=== PATIENT | female | born 1935 | race Caucasian/White ===

== ENCOUNTER 2016-12-27 13:54 | Inpatient (IN) | payer MEDICARE, OTHER ==
[~2016-12-27] VITALS: Ht 165.1 cm; Wt 59.0 kg
[2016-12-27 02:00] VITALS: BP 153/70; RESP 18
[2016-12-27 14:00] VITALS: Ht 165.1 cm; Wt 59.0 kg
[2016-12-27] MEDS ORDERED: ACETAMINOPHEN 325 MG TAB PO PRN (15:30)
[2016-12-27] MEDS: DEXTROSE 5%-0.9% NACL 1,000 ML IV SCH (16:09)
--- NOTE | 2016-12-27 16:12 | CONS ---
DATE OF ADMISSION: 12/27/2016 DATE OF CONSULTATION: 12/27/2016 HISTORY OF PRESENT ILLNESS: The patient is a 81-year-old female who developed pain and limit of mot ion involving her right hip following a ground level fall about 2 days ago. Initially, she was able to ambulate herself with some pain; however, evaluation on the day of her admission at the primary care physician's office revealed an obvious presence of femoral neck fracture involving the right hi p and she was admitted. There was tenderness. She has been in relatively good health with the only significant history of hyperlipidemia. She had hypertension at one time, but her blood pressure is under good control. PHYSICAL EXAMINATION: My examination revealed a 81-year-old female who seems to be rather healthy. There was tenderness and swelling around the right hip. Range of motion of the right hip was provo han considerable pain. There was minimal shortening and no abnormal rotation of the right lower ex tremity. There were no signs of neurovascular compromise involving the right lower extremity. DIAGNOSTIC STUDIES: X-rays of the right hip revealed an obvious fracture involving the subcapital a jaclyn of the femoral neck of the right hip. DIAGNOSTIC IMPRESSION: Femoral neck fracture of the right hip. TREATMENT PLAN: To carry out the hemiarthroplasty of the right hip as soon as she can be medically cleared for surgery. Dictated By: JOSÉ MIGUEL DELACRUZ/DENNIS Conf#: [id number] DID#: [id number]
--- NOTE | 2016-12-27 16:30 | HP ---
Date/Time of Note Date/Time of Note DATE: 12/27/16 TIME: 16:22 Assessment/Plan VTE Prophylaxis VTE Prophylaxis Intervention: SCD's Lines/Catheters IV Catheter Type (from Nrs): Saline Lock Urinary Cath still in place: No Assessment/Plan Chief Complaint/Hosp Course 1. Right hip fracture . Pt is scheduled for surgery by dr Rosen 2. dyslipidemia Problems: Assessment/Plan 1. Pt is clear for right hemiarthroplasty 2. NPO after midnight 3. Pain control HPI/ROS Admit Date/Time Admit Date/Time Dec 27, 2016 at 13:54 Hx of Present Illness January 24 patient felt on the floor at her home, consecutively she could not walk. On 12/27/2016 she was seen in ER and found right hip fracture ROS Constitutional: no complaints Eyes: no complaints ENT: no complaints Respiratory: no complaints Cardiovascular: chest pain, no complaints, No edema, No lightheadedness, No orthopenea, No other, No palpitations, No paroxysmal nocturnal dyspnea Gastrointestinal: no complaints Genitourinary: dysuria, no complaints, No bleeding, No discharge, No flank pain, No hematuria, No other Musculoskeletal: back pain, bone/joint pain (left hip), neck pain, no complaints, other, restricted range of motion, swelling Skin: no complaints Neurologic: no complaints Endocrine: no complaints Lymphatic: no complaints Psychological: anxiety, No confusion, No depression, No nl mood/affect, No no complaints, No other, No suicidal Immunologic: immunodeficiency, no complaints, No other, No pruritis, No rhinitis, No urticaria PMH/Family/Social Past Medical History Medical History: high cholesterol Past Surgical History Past Surgical Hx: no surgical history Family History Significant Family History: no pertinent family hx Social History Alcohol Use: none Smoking Status: Never smoker Drug Use: none Exam/Review of Systems Vital Signs Vitals Vital Signs Date Time Temp Pulse Resp B/P Pulse Ox O2 Delivery O2 Flow Rate FiO2 12/27/16 02:00 98.4 66 18 153/70 96 Exam Constitutional: alert, oriented Psych: nl mood/affect, no complaints Head: normocephalic Eyes: nl conjunctiva ENMT: nl external ears & nose Neck: supple Respiratory: clear to auscultation Cardiovascular: regular rate and rhythm Gastrointestinal: soft Genitourinary - Female: nl adnexae Musculoskeletal: other (pain in left hip) Extremities: normal pulses Neurological: URB[employer] FORESTER II-XII intact Medications Medications Current Medications Acetaminophen (Tylenol Tab) 650 mg Q6H PRN PO PAIN AND OR ELEVATED TEMP; Start 12/27/16 at 15:30 Bisacodyl 10 mg 10 mg BID PRN PO CONSTIPATION; Start 12/27/16 at 15:30 Dextrose/Sodium Chloride (D5-NS) 1,000 ml @ 50 mls/hr Q20H IV Last administered on 12/27/16 16:09; Admin Dose 50 MLS/HR; Start 12/27/16 at 15:30 WANDER CARPENTER Dec 27, 2016 16:30
[2016-12-27] MEDS ORDERED: DEXTROSE 5%-0.45% NACL 1,000 ML IV SCH (16:32)
[2016-12-27 16:43] LABS: ADD SCAN DIFF NO
[2016-12-27 16:45] LABS: BASOPHILS % 0.5 % (0.0-2.0); EOSINOPHILS # 0.1 10^3/ul (0.0-0.5); EOSINOPHILS % 1.3 % (0.0-7.0); HEMATOCRIT 37.1 % (37.0-47.0); HEMOGLOBIN 12.2 g/dl (12.0-16.0); LYMPHOCYTES # 1.1 10^3/ul (0.8-2.9); LYMPHOCYTES % 18.6 % (15.0-51.0); MEAN CORPUSCULAR HEMOGLOBIN 31.8 pg (29.0-33.0); MEAN CORPUSCULAR HGB CONC 32.9 g/dl (32.0-37.0); MEAN CORPUSCULAR VOLUME 96.6 fl (82.0-101.0); MONOCYTE # 0.5 10^3/ul (0.3-0.9); MONOCYTES % 8.7 % (0.0-11.0); NEUTROPHIL # 4.2 10^3/ul (1.6-7.5); NEUTROPHILS % 70.7 % (39.0-77.0); PLATELET COUNT 184 10^3/UL (140-415); RED BLOOD COUNT 3.84 10^6/ul (4.20-5.40); RED CELL DISTRIBUTION WIDTH 13.6 % (11.5-14.5)
[2016-12-27] MEDS ORDERED: NACL 0.9% 3 ML SYG IV SCH (17:00)
[2016-12-27] MEDS ORDERED: HYDROCODONE/APAP (5/325) TAB PO PRN (17:00)
[2016-12-27 17:07] LABS: ALBUMIN 4.7 g/dl (3.3-4.9); ALBUMIN/GLOBULIN RATIO 1.95; CALCIUM 9.7 mg/dl (8.4-10.2); CREATININE 0.96 mg/dl (0.44-1.00); POTASSIUM 4.5 mmol/L (3.5-5.1); TOTAL PROTEIN 7.1 g/dl (6.1-8.1)
--- NOTE | 2016-12-27 18:28 | RADRPT ---
PROCEDURE: XR Chest. CLINICAL INDICATION: Preop chest x-ray. TECHNIQUE: Single frontal view of the chest was obtained. COMPARISON: None FINDINGS: The soft tissues are normal. The bony elements are normal. The heart is enlarged. The cardiomedia stinal silhouette and hilar structures are normal. The pulmonary vasculature is normal. There are v ascular calcifications in the aortic arch. The lungs are clear. The costophrenic angles are normal. IMPRESSION: 1. Cardiomegaly. 2. Atherosclerosis of the aortic arch. RPTAT:AAJJ Physician aPulo Date Time Electronically viewed and signed by Physician Paulo on 12/27/2016 18:28 RANDI/
--- NOTE | 2016-12-27 18:29 | RADRPT ---
PROCEDURE: XR Hip. CLINICAL INDICATION: Preop. TECHNIQUE: AP and frog lateral views of the left hip were performed. COMPARISON: No. FINDINGS: There are degenerative changes of the left hip with spurs noted along the inferior margin of the rig ht femur. The joint space is narrowed. The left SI joint is normal. IMPRESSION: 1. Osteoarthritis of the left hip. RPTAT:AAJJ Physician Paulo Date Time Electronically viewed and signed by Last Rich Physician on 12/27/2016 18:29 RANDI/
--- NOTE | 2016-12-27 18:32 | RADRPT ---
PROCEDURE: XR Hip. CLINICAL INDICATION: Preop. TECHNIQUE: AP and frog lateral views of the right hip were performed. COMPARISON: None. FINDINGS: The soft tissues and bony elements are normal. There is suspected early medial narrowing of the righ t hip joint space. IMPRESSION: 1. Early narrowing of the medial portion of the right hip joint. RPTAT:AAJJ Physician Paulo Date Time Electronically viewed and signed by Last Rich Physician on 12/27/2016 18:31 RANDI/
[2016-12-27 20:24] VITALS: BP 140/64; PULSE 68; RESP 18
[2016-12-28] VITALS (20 sets, daily range): BP systolic 97–119; BP diastolic 56–81; PULSE 76–96; RESP 18–29
--- NOTE | 2016-12-28 00:02 | RADRPT ---
Vent Rate: 60 bpm RR Interval: 0 msec [place] Interval: 270 msec QRS Duration: 84 msec QT Interval: 446 msec QTC Interval: 446 msec P-R-T [place]: 90 - 75 - 69 degrees Sinus rhythm with 1st degree AV block Otherwise normal ECG Electronically Signed By: Damien Levy [id number]
[2016-12-28 05:39] LABS: CALCIUM 9.3 mg/dl (8.4-10.2); CREATININE 0.97 mg/dl (0.44-1.00); PHOSPHORUS 3.9 mg/dl (2.5-4.9); POTASSIUM 4.3 mmol/L (3.5-5.1)
[2016-12-28] MEDS: PANTOPRAZOLE 40 MG INJ IV SCH (05:58)
[2016-12-28] MEDS ORDERED: ATROPINE 1 MG/10 ML SYRINGE ONE (07:00)
[2016-12-28] MEDS ORDERED: GLYCOPYRROLATE 0.4 MG INJ ONE (08:47)
[2016-12-28] MEDS ORDERED: NEOSTIGMINE 3 MG/3 ML SYRINGE ONE (08:47)
[2016-12-28] MEDS ORDERED: PROPOFOL 20 ML ONE (08:47)
[2016-12-28] MEDS ORDERED: SUCCINYLCHOLINE CHLORIDE 100 MG/5 ML SYG IV ONE (08:47)
[2016-12-28] MEDS ORDERED: LIDOCAINE 2% (SDV) 5 ML INJ ONE (08:47)
[2016-12-28] MEDS ORDERED: ROCURONIUM 50 MG INJ ONE (08:47)
[2016-12-28] MEDS ORDERED: morphine SULFATE/PF (10 MG/10 ML) INJ ONE (09:02)
[2016-12-28] MEDS ORDERED: CEFAZOLIN 1 GM INJ ONE (09:18)
[2016-12-28] MEDS ORDERED: METOCLOPRAMIDE 10 MG INJ ONE (09:18)
[2016-12-28] MEDS ORDERED: ONDANSETRON 4 MG INJ ONE (09:18)
[2016-12-28] MEDS ORDERED: KETOROLAC 30 MG INJ IV PRN (10:00)
[2016-12-28] MEDS ORDERED: NALOXONE (0.4 MG/ML) INJ IV PRN (10:00)
[2016-12-28] MEDS ORDERED: morphine SULFATE/PF (10 MG/10 ML) INJ SPINAL ONE (10:00)
[2016-12-28] MEDS ORDERED: MIDAZOLAM 1 MG/ML 2 ML INJ IV PRN (10:00)
[2016-12-28] MEDS ORDERED: morphine (1 MG/ML) 10ML SYRINGE IV PRN ×2 (10:00)
[2016-12-28] MEDS ORDERED: MEPERIDINE 25 MG INJ IV PRN (10:00)
[2016-12-28] MEDS ORDERED: FENTAnyl 50 MCG/ML VIAL IV PRN ×2 (10:00)
[2016-12-28] MEDS ORDERED: EPHEDrine SULFATE 50 MG/5 ML SYG IV PRN ×2 (10:00)
[2016-12-28] MEDS ORDERED: ONDANSETRON 4 MG INJ IV PRN (10:00)
[2016-12-28] MEDS ORDERED: METOCLOPRAMIDE 10 MG INJ IV PRN (10:00)
[2016-12-28] MEDS ORDERED: hydrALAzine 20 MG INJ IV PRN (10:00)
[2016-12-28] MEDS ORDERED: DIPHENHYDRAMINE 50 MG INJ IV PRN (10:00)
[2016-12-28] MEDS ORDERED: LABETALOL HCL 20MG INJ IV PRN (10:00)
[2016-12-28] MEDS ORDERED: POLYMYXIN/BACITRACIN 1L IRRIG ONE (11:07)
[2016-12-28] MEDS: DEXTROSE 5%-0.9% NACL 1,000 ML IV SCH (11:30)
[2016-12-28] MEDS ORDERED: HYDROCODONE/APAP (5/325) TAB PO PRN (12:30)
[2016-12-28] MEDS ORDERED: NACL 0.9% 3 ML SYG IV SCH (12:30)
[2016-12-28] MEDS ORDERED: CEFAZOLIN 1 GM/50 ML (PMX) 50 ML IVPB SCH (12:30)
[2016-12-28] MEDS ORDERED: morphine 2 MG INJ IV PRN (12:30)
--- NOTE | 2016-12-28 13:23 | OPR ---
DATE OF OPERATION: 12/28/2016 PREOPERATIVE DIAGNOSIS: Femoral neck fracture of the right hip. POSTOPERATIVE DIAGNOSIS: Acute fracture of the right hip on a previously non-united fracture of the right femoral neck. OPERATION PERFORMED: Hemiarthroplasty of the right hip. ANESTHESIA: Spinal anesthesia, combined with general anesthesia. SURGEON: José Miguel Rosen MD PROCEDURE AND FINDINGS: Under anesthesia the patient was placed in the left lateral decubitus posit ion with the left side up. The usual prep and drape was done, exposing the right hip and right lowe r extremity. The right hip was approached through the posterolateral incision over the right hip. By blunt and sharp dissection and x-ray without removing the short external rotators, the right hip was opened and the right hip was explored and examined. It was obvious that there was a previously malunited fracture involving the area with considerable change in anatomy, including scar tissues an d malformation and shortening of the right femoral neck. In addition, there was an acute fracture i nvolving the neck of the right femur. After the above findings the procedures were carried out in t following manner: First the femoral head was removed and the measurement revealed that the size of the head is about 47 mm in diameter. After cleaning the acetabular cavity, which seemed to have some signs of degenerative changes, the trial reduction was carried out with several different sizes and a size 47-mm trial bipolar trial cup was providing the best fit. After packing the acetabular cavity, attention then was directed to the proximal femur. Following initial preparation in the pro ximal end of the femur with the box osteotome and T-handled reamer, further preparation was carried out using increasing sizes of broaches. Because of the preexisting deformity and abnormalities, an intraoperative proactive examination was carried out. With the size 7 broach in, radiologic examina tion was carried out in order to confirm the satisfactory position of the broaches. Finally, with t size 7 broach in, trial components were assembled and the joint was reduced. It was noted that a -4 neck on a standard neck in size 7 broach with the 47-mm cup was providing the best fit and stabi lity. After removing all the trial components, actual stem in the size of 7 was pounded in and this was connected to a -4 with the 47-mm type bipolar cup. The joint was reduced and the stability, th e fitting and the leg length was entirely satisfactory. After irrigation and hemostasis and after c losing the capsules, further stabilization was carried out with the nurse. After irrigation and hemostasis, the closure of the muscles and fascia were carried out with 0 Vicry l. Further closure was carried out using 2-0 Vicryl for the subcutaneous tissues. Final skin closu re was carried out with skin germaine. The usual sterile pressure dressings were applied. The patient tolerated the entire procedure very well and was sent to the recovery room in good condi tion. Dictated By: JOSÉ MIGUEL DELACRUZ/DENNIS Conf#: [id number] DID#: [id number]
[2016-12-28 13:59] LABS: ADD SCAN DIFF NO
[2016-12-28 14:03] LABS: BASOPHILS % 0.2 % (0.0-2.0); EOSINOPHILS # 0.1 10^3/ul (0.0-0.5); EOSINOPHILS % 1.1 % (0.0-7.0); HEMATOCRIT 32.6 % (37.0-47.0); HEMOGLOBIN 10.5 g/dl (12.0-16.0); LYMPHOCYTES # 1.1 10^3/ul (0.8-2.9); LYMPHOCYTES % 13.5 % (15.0-51.0); MEAN CORPUSCULAR HEMOGLOBIN 31.8 pg (29.0-33.0); MEAN CORPUSCULAR HGB CONC 32.2 g/dl (32.0-37.0); MEAN CORPUSCULAR VOLUME 98.8 fl (82.0-101.0); MONOCYTE # 0.6 10^3/ul (0.3-0.9); MONOCYTES % 7.1 % (0.0-11.0); NEUTROPHIL # 6.5 10^3/ul (1.6-7.5); PLATELET COUNT 171 10^3/UL (140-415); RED CELL DISTRIBUTION WIDTH 13.5 % (11.5-14.5); WHITE BLOOD COUNT 8.3 10^3/ul (4.8-10.8)
[2016-12-28 14:39] LABS: ADD UMIC YES; URINE BILIRUBIN (Dip) NEGATIVE (NEGATIVE); URINE BLOOD (Dip) TRACE (NEGATIVE); URINE COLOR LT. YELLOW (YELLOW); URINE GLUCOSE (Dip) NEGATIVE (NEGATIVE); URINE KETONES (Dip) NEGATIVE (NEGATIVE); URINE LEUKOCYTE ESTERASE (Dip) NEGATIVE (NEGATIVE); URINE NITRITE (Dip) NEGATIVE (NEGATIVE); URINE TOTAL PROTEIN (Dip) NEGATIVE (NEGATIVE); URINE UROBILINOGEN (Dip) 0.2 E.U./dL (0.1-1.0)
[2016-12-28 14:48] LABS: BACTERIA,URINE OCCASIONAL; URINE RBCS 0-2 /HPF (0)
--- NOTE | 2016-12-28 15:08 | PN ---
Date/Time of Note Date/Time of Note DATE: 12/28/16 TIME: 15:06 Assessment/Plan VTE Prophylaxis VTE Prophylaxis Intervention: SCD's Lines/Catheters IV Catheter Type (from Nrs): Peripheral IV Urinary Cath still in place: Yes Reason Cath still needed: urinary retention Assessment/Plan Chief Complaint/Hosp Course 1. s/p hemiarthroplasty of the right hip. 2. dyslipidemia Problems: Assessment/Plan 1. recovery 2. IS as directed 3. PT per dr Mayers Subjective 24 Hr Interval Summary Constitutional: no complaints Musculoskeletal: restricted range of motion (right hip and some postop pain) Exam/Review of Systems Vital Signs Vitals Vital Signs Date Time Temp Pulse Resp B/P Pulse Ox O2 Delivery O2 Flow Rate FiO2 12/28/16 13:00 86 29 109/56 97 Room Air 12/28/16 12:00 98.3 Intake and Output 12/27/16 12/27/16 12/28/16 15:00 23:00 07:00 Intake Total 650 ml 1300 ml Output Total 300 ml 1400 ml Balance 350 ml -100 ml Exam Constitutional: alert, oriented Respiratory: clear to auscultation Cardiovascular: regular rate and rhythm Results Result Diagram: 12/28/16 1320 12/28/16 0423 Results 24 hrs Laboratory Tests Test 12/27/16 16:08 12/28/16 04:23 12/28/16 13:20 White Blood Count 6.0 8.3 # Red Blood Count 3.84 L 3.30 L Hemoglobin 12.2 10.5 L Hematocrit 37.1 32.6 L Mean Corpuscular Volume 96.6 98.8 Mean Corpuscular Hemoglobin 31.8 31.8 Mean Corpuscular Hemoglobin Concent 32.9 32.2 Red Cell Distribution Width 13.6 13.5 Platelet Count 184 171 Mean Platelet Volume 11.0 H 11.0 H Neutrophils % 70.7 78.0 H Lymphocytes % 18.6 13.5 L Monocytes % 8.7 7.1 Eosinophils % 1.3 1.1 Basophils % 0.5 0.2 Nucleated Red Blood Cells % 0.0 0.0 Neutrophils # 4.2 6.5 Lymphocytes # 1.1 1.1 Monocytes # 0.5 0.6 Eosinophils # 0.1 0.1 Basophils # 0.0 0.0 Nucleated Red Blood Cells # 0.0 0.0 Activated Partial Thromboplast Time 29.9 Sodium Level 147 H 146 H Potassium Level 4.5 4.3 Chloride Level 106 109 Carbon Dioxide Level 29 29 Anion Gap 17 H 12 Blood Urea Nitrogen 13 10 Creatinine 0.96 0.97 Glucose Level 83 87 Calcium Level 9.7 9.3 Total Bilirubin 1.0 Direct Bilirubin 0.00 Indirect Bilirubin 1.0 Aspartate Amino Transf (AST/SGOT) 24 Alanine Aminotransferase (ALT/SGPT) 35 Alkaline Phosphatase 67 Total Protein 7.1 Albumin 4.7 Globulin 2.40 Albumin/Globulin Ratio 1.95 Hemoglobin A1c 5.8 Phosphorus Level 3.9 Medications Medications Current Medications Acetaminophen (Tylenol Tab) 650 mg Q6H PRN PO PAIN AND OR ELEVATED TEMP; Start 12/27/16 at 15:30 Bisacodyl 10 mg 10 mg BID PRN PO CONSTIPATION; Start 12/27/16 at 15:30 Dextrose/Sodium Chloride (D5-NS) 1,000 ml @ 50 mls/hr Q20H IV Last administered on 12/27/16 16:09; Admin Dose 50 MLS/HR; Start 12/27/16 at 15:30 Acetaminophen/ Hydrocodone Bitart ([place] (5/325)) 1 tab Q6H PRN PO MODERATE PAIN LEVEL 4-6; Start 12/27/16 at 17:00 Pantoprazole (Protonix Iv) 40 mg DAILY@06 IV Last administered on 12/28/16 05: 58; Admin Dose 40 MG; Start 12/28/16 at 06:00 Naloxone HCl (Narcan) 0.1 mg Q2M PRN IV FOR RESP RATE 8 OR LESS; Start 12/28/16 at 10:00; Stop 12/28/16 at 16:00 Ketorolac Tromethamine (Toradol) 30 mg Q6H PRN IV PAIN; Start 12/28/16 at 10:00 ; Stop 12/29/16 at 10:00 Ephedrine Sulfate 5 mg 5 mg [id number] PRN IV BLOOD PRESSURE SUPPORT; Start at 10:00; Stop 12/28/16 at 16:00 Sodium Chloride (NS) 1,000 ml @ 80 mls/hr [id number] IV ; Start 12/28/16 at 12:11 Enoxaparin Sodium (Lovenox) 40 mg DAILY SC ; Start 12/29/16 at 08:00 Morphine Sulfate (morphine) 2 mg Q3H PRN IV PAIN; Start 12/28/16 at 12:30 Acetaminophen/ Hydrocodone Bitart 1 tab 1 tab Q3H PRN PO PAIN; Start 12/28/16 at 12:30 Cefazolin Sodium (Ancef 1 Gm/50 ml (Pmx)) 50 ml @ 100 mls/hr Q8H IVPB ; Start 12/28/16 at 17:30; Stop 12/29/16 at 09:59 WANDER CARPENTER Dec 28, 2016 15:08
--- NOTE | 2016-12-28 16:48 | RADRPT ---
AMENDMENT: 12/28/2016 4:48:42 PM Matteo Stuart M.d Please note in the comparison section it should state radiographs of the right hip dated December 27 PROCEDURE: XR Hip. CLINICAL INDICATION: Postoperative evaluation TECHNIQUE: Single view of the right hip COMPARISON: Radiographs of the right hip dated January 26, 2017 FINDINGS: There is a right hip hemiarthroplasty in anatomic alignment. There is overlying soft tissue swellin g and soft tissue gas. There are skin germaine. There is no fracture. IMPRESSION: Right hip mari arthroplasty, in anatomic alignment, without hardware complication. RPTAT: QQ .Matteo Stuart MD, MD Date Time Electronically viewed and signed by .Matteo Stuart MD, on 12/28/2016 16:48 .Srinath/
[2016-12-28] MEDS: SOD CHLORIDE 0.9% 1,000 ML IV SCH (16:49)
[2016-12-28] MEDS: CEFAZOLIN 1 GM/50 ML (PMX) 50 ML IVPB SCH (16:52)
[2016-12-29] MEDS: SOD CHLORIDE 0.9% 1,000 ML IV SCH ×2 (00:39→08:57)
[2016-12-29] MEDS: CEFAZOLIN 1 GM/50 ML (PMX) 50 ML IVPB SCH ×2 (00:41→08:57)
[2016-12-29] MEDS: PANTOPRAZOLE 40 MG INJ IV SCH (05:51)
[2016-12-29 05:56] LABS: ADD SCAN DIFF NO; BASOPHILS % 0.2 % (0.0-2.0); EOSINOPHILS % 0.2 % (0.0-7.0); HEMATOCRIT 26.4 % (37.0-47.0); HEMOGLOBIN 8.5 g/dl (12.0-16.0); LYMPHOCYTES # 0.9 10^3/ul (0.8-2.9); MEAN CORPUSCULAR HEMOGLOBIN 31.4 pg (29.0-33.0); MEAN CORPUSCULAR HGB CONC 32.2 g/dl (32.0-37.0); MEAN CORPUSCULAR VOLUME 97.4 fl (82.0-101.0); MONOCYTE # 0.8 10^3/ul (0.3-0.9); MONOCYTES % 13.4 % (0.0-11.0); NEUTROPHIL # 4.5 10^3/ul (1.6-7.5); PLATELET COUNT 147 10^3/UL (140-415); RED BLOOD COUNT 2.71 10^6/ul (4.20-5.40); RED CELL DISTRIBUTION WIDTH 13.3 % (11.5-14.5); WHITE BLOOD COUNT 6.3 10^3/ul (4.8-10.8)
[2016-12-29 06:13] VITALS: BP 112/62; PULSE 56; RESP 18
[2016-12-29 06:23] LABS: CALCIUM 8.3 mg/dl (8.4-10.2); CREATININE 0.9 mg/dl (0.44-1.00); POTASSIUM 4.1 mmol/L (3.5-5.1)
[2016-12-29 06:30] LABS: INR 1.19; PROTIME 15.2 Sec (12.2-14.2); PT RATIO 1.2
[2016-12-29] MEDS: DEXTROSE 5%-0.9% NACL 1,000 ML IV SCH (07:30)
[2016-12-29] MEDS ORDERED: ENOXAPARIN 30 MG/0.3 ML SYG SC SCH (08:00)
[2016-12-29 08:12] VITALS: BP 99/52; RESP 19
[2016-12-29] MEDS ORDERED: ENOXAPARIN 40 MG/0.4 ML SYG SC SCH (09:00)
[2016-12-29] MEDS: ENOXAPARIN 40 MG/0.4 ML SYG SC SCH (09:39)
--- NOTE | 2016-12-29 10:22 | RADRPT ---
PROCEDURE: Fluoroscopy CLINICAL INDICATION: Right hip arthroplasty TECHNIQUE: Less than 1 minute fluoroscopic time utilized by Dr. STEELE for procedure. 5 images/sequences of are submitted. COMPARISON: 12/27/2016 FINDINGS: Right hip arthroplasty in progress is demonstrated. IMPRESSION: Fluoroscopy utilized by Dr. STEELE for right hip arthroplasty Please see procedural report for complete details. RPTAT: QQ .Edu Cruz MD, Date Time Electronically viewed and signed by .Edu Cruz MD, on 12/29/2016 10:22 .L/
--- NOTE | 2016-12-29 10:22 | RADRPT ---
PROCEDURE: Fluoroscopy CLINICAL INDICATION: Right hip arthroplasty TECHNIQUE: Less than 1 minute fluoroscopic time utilized by Dr. STEELE for procedure. 5 images/sequences of are submitted. COMPARISON: None FINDINGS: Right hip arthroplasty in progress is demonstrated. IMPRESSION: Fluoroscopy utilized by Dr. STEELE for right hip arthroplasty Please see procedural report for complete details. RPTAT: QQ .Edu Cruz MD, MD Date Time Electronically viewed and signed by .Edu Cruz MD, on 12/29/2016 10:21 .L/
--- NOTE | 2016-12-29 13:53 | PN ---
Date/Time of Note Date/Time of Note DATE: 12/29/16 TIME: 13:52 Assessment/Plan VTE Prophylaxis VTE Prophylaxis Intervention: other Lines/Catheters IV Catheter Type (from Nrsg): Peripheral IV Urinary Cath still in place: Yes Reason Cath still needed: other (indicate) Assessment/Plan Chief Complaint/Hosp Course S/P HIP SURGERY FEMUR FRACTURE NO UTI PLAN PER ORTHO Problems: Subjective 24 Hr Interval Summary Cardiovascular: no complaints, No chest pain Gastrointestinal: no complaints Exam/Review of Systems Vital Signs Vitals Vital Signs Date Time Temp Pulse Resp B/P Pulse Ox O2 Delivery O2 Flow Rate FiO2 12/29/16 08:12 98.5 104 19 99/52 97 12/29/16 06:13 Room Air Intake and Output 12/28/16 12/28/16 12/29/16 15:00 23:00 07:00 Intake Total 2350 ml 1450 ml 1720 ml Output Total 1450 ml 300 ml 1400 ml Balance 900 ml 1150 ml 320 ml Exam Neck: supple Respiratory: clear to auscultation Cardiovascular: regular rate and rhythm Gastrointestinal: soft Musculoskeletal: nl extremities to inspection Extremities: normal pulses Results Result Diagram: 12/29/16 0524 12/29/16 0524 Results 24 hrs Laboratory Tests Test 12/29/16 05:24 White Blood Count 6.3 # Red Blood Count 2.71 L Hemoglobin 8.5 L Hematocrit 26.4 L Mean Corpuscular Volume 97.4 Mean Corpuscular Hemoglobin 31.4 Mean Corpuscular Hemoglobin Concent 32.2 Red Cell Distribution Width 13.3 Platelet Count 147 Mean Platelet Volume 11.0 H Neutrophils % 71.0 Lymphocytes % 15.0 Monocytes % 13.4 H Eosinophils % 0.2 Basophils % 0.2 Nucleated Red Blood Cells % 0.0 Neutrophils # 4.5 Lymphocytes # 0.9 Monocytes # 0.8 Eosinophils # 0.0 Basophils # 0.0 Nucleated Red Blood Cells # 0.0 Prothrombin Time 15.2 H Prothrombin Time Ratio 1.2 INR International Normalized Ratio 1.19 Sodium Level 137 Potassium Level 4.1 Chloride Level 105 Carbon Dioxide Level 27 Anion Gap 9 Blood Urea Nitrogen 13 Creatinine 0.90 Glucose Level 131 # Calcium Level 8.3 L Medications Medications Current Medications Acetaminophen (Tylenol Tab) 650 mg Q6H PRN PO PAIN AND OR ELEVATED TEMP; Start 12/27/16 at 15:30 Bisacodyl 10 mg 10 mg BID PRN PO CONSTIPATION; Start 12/27/16 at 15:30 Dextrose/Sodium Chloride (D5-NS) 1,000 ml @ 50 mls/hr Q20H IV Last administered on 12/27/16 16:09; Admin Dose 50 MLS/HR; Start 12/27/16 at 15:30 Acetaminophen/ Hydrocodone Bitart ([place] (5/325)) 1 tab Q6H PRN PO MODERATE PAIN LEVEL 4-6; Start 12/27/16 at 17:00 Pantoprazole 40 mg 40 mg DAILY@06 IV Last administered on 12/29/16 05:51; Admin Dose 40 MG; Start 12/28/16 at 06:00 Sodium Chloride (NS) 1,000 ml @ 80 mls/hr [id number] IV Last administered on 08:57; Admin Dose 80 MLS/HR; Start 12/28/16 at 12:11 Morphine Sulfate (morphine) 2 mg Q3H PRN IV PAIN; Start 12/28/16 at 12:30 Acetaminophen/ Hydrocodone Bitart ([place] (5/325)) 1 tab Q3H PRN PO PAIN; Start 12/28/16 at 12:30 Enoxaparin Sodium (Lovenox) 40 mg DAILY SC Last administered on 12/29/16 09:39 ; Admin Dose 40 MG; Start 12/29/16 at 09:00 EFRAÍN PEREIRA MD Dec 29, 2016 13:53
[2016-12-29 21:00] VITALS: BP 134/60; PULSE 91; RESP 20
--- NOTE | 2016-12-29 23:48 | RADRPT ---
Vent Rate: 84 bpm RR Interval: 0 msec [place] Interval: 266 msec QRS Duration: 84 msec QT Interval: 370 msec QTC Interval: 437 msec P-R-T [place]: 72 - 68 - 55 degrees Sinus rhythm with 1st degree AV block with frequent premature ventricular complexes in bigeminy pattern Nonspecific ST and T wave abnormality Abnormal ECG Electronically Signed By: Damien Levy [id number]
[2016-12-30 00:29] VITALS: BP 125/61; RESP 18
[2016-12-30] MEDS: SOD CHLORIDE 0.9% 1,000 ML IV SCH ×3 (00:30→20:38)
[2016-12-30] MEDS: DEXTROSE 5%-0.9% NACL 1,000 ML IV SCH ×2 (03:30→23:30)
[2016-12-30 05:35] LABS: ADD SCAN DIFF NO; BASOPHILS % 0.1 % (0.0-2.0); HEMATOCRIT 24.3 % (37.0-47.0); HEMOGLOBIN 8.1 g/dl (12.0-16.0); MEAN CORPUSCULAR HEMOGLOBIN 31.8 pg (29.0-33.0); MEAN CORPUSCULAR HGB CONC 33.3 g/dl (32.0-37.0); MEAN CORPUSCULAR VOLUME 95.3 fl (82.0-101.0); MEAN PLATELET VOLUME 11.5 fl (7.4-10.4); MONOCYTES % 11.8 % (0.0-11.0); NEUTROPHIL # 6.4 10^3/ul (1.6-7.5); NEUTROPHILS % 75.6 % (39.0-77.0); PLATELET COUNT 147 10^3/UL (140-415); RED BLOOD COUNT 2.55 10^6/ul (4.20-5.40); WHITE BLOOD COUNT 8.4 10^3/ul (4.8-10.8)
[2016-12-30] MEDS: PANTOPRAZOLE 40 MG INJ IV SCH (05:42)
[2016-12-30 05:57] LABS: INR 1.17; PT RATIO 1.2
[2016-12-30 06:01] LABS: CALCIUM 8.2 mg/dl (8.4-10.2); CREATININE 0.85 mg/dl (0.44-1.00); POTASSIUM 4.2 mmol/L (3.5-5.1)
[2016-12-30 07:39] VITALS: BP 129/61; RESP 18
--- NOTE | 2016-12-30 08:57 | PN ---
DATE: 12/29/2016 First postop day, postop x-ray of the right hip reveals satisfactory alignment of the right hip join t. Afebrile. H and H today is 8.5/26.4. No major neurovascular compromise. To be immobilized as tolerated. Possible consideration for further rehabilitation at the acute rehabilitation. Dictated By: JOSÉ MIGUEL DELACRUZ/DENNIS Conf#: [id number] DID#: [id number]
[2016-12-30] MEDS: ENOXAPARIN 40 MG/0.4 ML SYG SC SCH (09:29)
[2016-12-30 19:09] VITALS: BP 123/57; RESP 18
--- NOTE | 2016-12-30 19:15 | PN ---
Date/Time of Note Date/Time of Note DATE: 12/30/16 TIME: 19:14 Assessment/Plan VTE Prophylaxis VTE Prophylaxis Intervention: other Lines/Catheters IV Catheter Type (from Nrsg): Peripheral IV Urinary Cath still in place: Yes Reason Cath still needed: other (indicate) Assessment/Plan Chief Complaint/Hosp Course S/P HIP SURGERY FEMUR FRACTURE NO UTI PLAN PER ORTHO dc pedro Problems: Subjective 24 Hr Interval Summary Cardiovascular: no complaints Gastrointestinal: no complaints Exam/Review of Systems Vital Signs Vitals Vital Signs Date Time Temp Pulse Resp B/P Pulse Ox O2 Delivery O2 Flow Rate FiO2 12/30/16 19:09 98.8 79 18 123/57 97 12/29/16 21:00 Room Air Intake and Output 12/29/16 12/29/16 12/30/16 15:00 23:00 07:00 Intake Total 350 ml 1600 ml 1290 ml Output Total 800 ml 1600 ml Balance 350 ml 800 ml -310 ml Exam Neck: supple Respiratory: clear to auscultation Cardiovascular: regular rate and rhythm Gastrointestinal: soft Results Result Diagram: 12/30/16 0425 12/30/16 0425 Results 24 hrs Laboratory Tests Test 12/30/16 04:25 White Blood Count 8.4 # Red Blood Count 2.55 L Hemoglobin 8.1 L Hematocrit 24.3 L Mean Corpuscular Volume 95.3 Mean Corpuscular Hemoglobin 31.8 Mean Corpuscular Hemoglobin Concent 33.3 Red Cell Distribution Width 13.0 Platelet Count 147 Mean Platelet Volume 11.5 H Neutrophils % 75.6 Lymphocytes % 12.0 L Monocytes % 11.8 H Eosinophils % 0.0 Basophils % 0.1 Nucleated Red Blood Cells % 0.0 Neutrophils # 6.4 Lymphocytes # 1.0 Monocytes # 1.0 H Eosinophils # 0.0 Basophils # 0.0 Nucleated Red Blood Cells # 0.0 Prothrombin Time 15.0 H Prothrombin Time Ratio 1.2 INR International Normalized Ratio 1.17 Sodium Level 139 Potassium Level 4.2 Chloride Level 105 Carbon Dioxide Level 28 Anion Gap 10 Blood Urea Nitrogen 9 Creatinine 0.85 Glucose Level 128 Calcium Level 8.2 L Medications Medications Current Medications Acetaminophen (Tylenol Tab) 650 mg Q6H PRN PO PAIN AND OR ELEVATED TEMP; Start 12/27/16 at 15:30 Bisacodyl 10 mg 10 mg BID PRN PO CONSTIPATION; Start 12/27/16 at 15:30 Dextrose/Sodium Chloride (D5-NS) 1,000 ml @ 50 mls/hr Q20H IV Last administered on 12/27/16 16:09; Admin Dose 50 MLS/HR; Start 12/27/16 at 15:30 Acetaminophen/ Hydrocodone Bitart ([place] (5/325)) 1 tab Q6H PRN PO MODERATE PAIN LEVEL 4-6; Start 12/27/16 at 17:00 Pantoprazole 40 mg 40 mg DAILY@06 IV Last administered on 12/30/16 05:42; Admin Dose 40 MG; Start 12/28/16 at 06:00 Sodium Chloride (NS) 1,000 ml @ 80 mls/hr [id number] IV Last administered on 00:30; Admin Dose 80 MLS/HR; Start 12/28/16 at 12:11 Morphine Sulfate (morphine) 2 mg Q3H PRN IV PAIN; Start 12/28/16 at 12:30 Acetaminophen/ Hydrocodone Bitart ([place] (5/325)) 1 tab Q3H PRN PO PAIN Last administered on 12/30/16 11:15; Admin Dose 1 TAB; Start 12/28/16 at 12:30 Enoxaparin Sodium (Lovenox) 40 mg DAILY SC Last administered on 12/30/16 09:29 ; Admin Dose 40 MG; Start 12/29/16 at 09:00 EFRAÍN PEREIRA MD Dec 30, 2016 19:15
[2016-12-31] MEDS: SOD CHLORIDE 0.9% 1,000 ML IV SCH ×2 (02:41→15:57)
[2016-12-31 05:43] LABS: ADD SCAN DIFF NO
[2016-12-31 05:55] LABS: BASOPHILS % 0.2 % (0.0-2.0); EOSINOPHILS % 0.4 % (0.0-7.0); HEMATOCRIT 22.6 % (37.0-47.0); HEMOGLOBIN 7.6 g/dl (12.0-16.0); LYMPHOCYTES % 12.1 % (15.0-51.0); MEAN CORPUSCULAR HEMOGLOBIN 31.9 pg (29.0-33.0); MEAN CORPUSCULAR HGB CONC 33.6 g/dl (32.0-37.0); MEAN PLATELET VOLUME 11.2 fl (7.4-10.4); MONOCYTE # 0.8 10^3/ul (0.3-0.9); NEUTROPHIL # 6.5 10^3/ul (1.6-7.5); NEUTROPHILS % 76.9 % (39.0-77.0); PLATELET COUNT 143 10^3/UL (140-415); RED BLOOD COUNT 2.38 10^6/ul (4.20-5.40); RED CELL DISTRIBUTION WIDTH 13.2 % (11.5-14.5); WHITE BLOOD COUNT 8.4 10^3/ul (4.8-10.8)
[2016-12-31] MEDS: PANTOPRAZOLE 40 MG INJ IV SCH (05:55)
[2016-12-31] MEDS: BISACODYL (EC) 5 MG TAB PO PRN (05:55)
[2016-12-31 06:08] LABS: INR 1.09; PROTIME 14.1 Sec (12.2-14.2); PT RATIO 1.1
[2016-12-31 06:27] LABS: CALCIUM 8.2 mg/dl (8.4-10.2); CREATININE 0.75 mg/dl (0.44-1.00)
[2016-12-31] MEDS ORDERED: SOD CHLORIDE 0.9% 250 ML IV* ONE (06:48)
[2016-12-31 08:45] VITALS: BP 118/54; RESP 18
[2016-12-31] MEDS: ENOXAPARIN 40 MG/0.4 ML SYG SC SCH (09:37)
[2016-12-31] MEDS: DEXTROSE 5%-0.9% NACL 1,000 ML IV SCH (19:30)
[2016-12-31 20:23] VITALS: BP 121/60; RESP 20
--- NOTE | 2016-12-31 23:13 | PN ---
Date/Time of Note Date/Time of Note DATE: 12/31/16 TIME: 23:11 Assessment/Plan VTE Prophylaxis VTE Prophylaxis Intervention: other Lines/Catheters IV Catheter Type (from Nrs): Saline Lock Urinary Cath still in place: Yes Reason Cath still needed: other (indicate) Assessment/Plan Chief Complaint/Hosp Course S/P HIP SURGERY FEMUR FRACTURE post op anemia NO UTI PLAN PER ORTHO prbc Problems: Subjective 24 Hr Interval Summary Gastrointestinal: no complaints Genitourinary: no complaints Musculoskeletal: restricted range of motion Exam/Review of Systems Vital Signs Vitals Vital Signs Date Time Temp Pulse Resp B/P Pulse Ox O2 Delivery O2 Flow Rate FiO2 12/31/16 20:23 99.3 86 20 121/60 96 12/29/16 21:00 Room Air Intake and Output 12/30/16 12/30/16 12/31/16 15:00 23:00 07:00 Intake Total 1900 ml 1920 ml Output Total 1650 ml 1660 ml Balance 250 ml 260 ml Exam Respiratory: clear to auscultation Cardiovascular: regular rate and rhythm Gastrointestinal: soft Extremities: edema Results Result Diagram: 12/31/16 0420 12/31/16 0420 Results 24 hrs Laboratory Tests Test 12/31/16 04:20 White Blood Count 8.4 Red Blood Count 2.38 L Hemoglobin 7.6 L Hematocrit 22.6 L Mean Corpuscular Volume 95.0 Mean Corpuscular Hemoglobin 31.9 Mean Corpuscular Hemoglobin Concent 33.6 Red Cell Distribution Width 13.2 Platelet Count 143 Mean Platelet Volume 11.2 H Neutrophils % 76.9 Lymphocytes % 12.1 L Monocytes % 10.0 Eosinophils % 0.4 Basophils % 0.2 Nucleated Red Blood Cells % 0.0 Neutrophils # 6.5 Lymphocytes # 1.0 Monocytes # 0.8 Eosinophils # 0.0 Basophils # 0.0 Nucleated Red Blood Cells # 0.0 Prothrombin Time 14.1 Prothrombin Time Ratio 1.1 INR International Normalized Ratio 1.09 Sodium Level 140 Potassium Level 4.0 Chloride Level 106 Carbon Dioxide Level 28 Anion Gap 10 Blood Urea Nitrogen 9 Creatinine 0.75 Glucose Level 120 Calcium Level 8.2 L Medications Medications Current Medications Acetaminophen (Tylenol Tab) 650 mg Q6H PRN PO PAIN AND OR ELEVATED TEMP; Start 12/27/16 at 15:30 Bisacodyl 10 mg 10 mg BID PRN PO CONSTIPATION Last administered on 12/31/16 05: 55; Admin Dose 10 MG; Start 12/27/16 at 15:30 Dextrose/Sodium Chloride (D5-NS) 1,000 ml @ 50 mls/hr Q20H IV Last administered on 12/27/16 16:09; Admin Dose 50 MLS/HR; Start 12/27/16 at 15:30 Acetaminophen/ Hydrocodone Bitart ([place] (5/325)) 1 tab Q6H PRN PO MODERATE PAIN LEVEL 4-6; Start 12/27/16 at 17:00 Pantoprazole 40 mg 40 mg DAILY@06 IV Last administered on 12/31/16 05:55; Admin Dose 40 MG; Start 12/28/16 at 06:00 Sodium Chloride (NS) 1,000 ml @ 80 mls/hr [id number] IV Last administered on 15:57; Admin Dose 80 MLS/HR; Start 12/28/16 at 12:11 Morphine Sulfate (morphine) 2 mg Q3H PRN IV PAIN; Start 12/28/16 at 12:30 Acetaminophen/ Hydrocodone Bitart ([place] (5/325)) 1 tab Q3H PRN PO PAIN Last administered on 12/30/16 11:15; Admin Dose 1 TAB; Start 12/28/16 at 12:30 Enoxaparin Sodium (Lovenox) 40 mg DAILY SC Last administered on 12/31/16 09:37 ; Admin Dose 40 MG; Start 12/29/16 at 09:00 EFRAÍN PEREIRA MD Dec 31, 2016 23:13
[2017-01-01] MEDS: SOD CHLORIDE 0.9% 1,000 ML IV SCH ×2 (03:41→05:32)
[2017-01-01 05:22] LABS: ADD SCAN DIFF NO
[2017-01-01 05:31] LABS: BASOPHILS % 0.3 % (0.0-2.0); EOSINOPHILS # 0.1 10^3/ul (0.0-0.5); EOSINOPHILS % 0.8 % (0.0-7.0); HEMOGLOBIN 8.2 g/dl (12.0-16.0); LYMPHOCYTES # 1.1 10^3/ul (0.8-2.9); LYMPHOCYTES % 16.3 % (15.0-51.0); MEAN CORPUSCULAR HEMOGLOBIN 30.8 pg (29.0-33.0); MEAN CORPUSCULAR HGB CONC 32.8 g/dl (32.0-37.0); MEAN PLATELET VOLUME 10.9 fl (7.4-10.4); MONOCYTE # 0.7 10^3/ul (0.3-0.9); MONOCYTES % 10.9 % (0.0-11.0); NEUTROPHIL # 4.6 10^3/ul (1.6-7.5); NEUTROPHILS % 71.4 % (39.0-77.0); PLATELET COUNT 179 10^3/UL (140-415); RED BLOOD COUNT 2.66 10^6/ul (4.20-5.40); RED CELL DISTRIBUTION WIDTH 13.9 % (11.5-14.5); WHITE BLOOD COUNT 6.5 10^3/ul (4.8-10.8)
[2017-01-01] MEDS: PANTOPRAZOLE 40 MG INJ IV SCH (05:32)
[2017-01-01 05:46] LABS: INR 1.01; PROTIME 13.3 Sec (12.2-14.2)
[2017-01-01 05:55] LABS: CALCIUM 8.6 mg/dl (8.4-10.2); CREATININE 0.76 mg/dl (0.44-1.00)
--- NOTE | 2017-01-01 07:07 | PN ---
DATE: 12/31/2016 Third postop day. Stable vital signs. Latest CBC shows anemia with the hemoglobin 7.6/22.6, being transfused with 1 unit of packed cell. Considerable swelling over the right lower extremity. The f unction of nerve is intact, but there is a temporary weakness of the ankle dorsiflexor. We wi ll apply over the right ankle until the ankle dorsiflexor function is completely returned. Dictated By: JOSÉ MIGUEL STEELE MD IK/NTS Conf#: [id number] DID#: [id number] CC: EFRAÍN PEREIRA MD;*EndCC*
[2017-01-01] MEDS: BISACODYL (EC) 5 MG TAB PO PRN (07:28)
[2017-01-01 07:33] VITALS: BP 146/65; RESP 19
[2017-01-01] MEDS: ENOXAPARIN 40 MG/0.4 ML SYG SC SCH (10:52)
[2017-01-01] MEDS ORDERED: SOD CHLORIDE 0.9% 1,000 ML IV SCH (11:55)
--- NOTE | 2017-01-04 17:18 | QN ---
Documentation Comment [id number] EFRAÍN PEREIRA MD Jan 04, 2017 17:18
--- NOTE | 2017-01-04 19:27 | TS ---
DATE OF ADMISSION: 12/27/2016 DATE OF DISCHARGE: 01/01/2017 HOSPITAL COURSE: The patient was admitted with of fall. The patient was admitted with right hip pa in. She underwent a right hip hemiarthroplasty by Dr. Joseph Rosen. Postop course was complicated by pain, anemia, which was monitored. The patient will require physical therapy at an acute rehabilitation center and is going to be trans ferred to acute rehabilitation. The patient was cleared by Dr. Rosen to be transferred. DISCHARGE DIAGNOSES Includes: 1. A right hip fracture, status post right hip hemiarthroplasty. Patient's other diagnoses include: 2. Orthostatic hypotension. 3. Deconditioning. 4. Anemia. DISCHARGE MEDICATIONS Includes, to continue on: 1. Tylenol. 2. Bisacodyl. 3. [place]. 4. Protonix. 5. Morphine. 6. Lovenox. CONDITION ON DISCHARGE: The patient stable at the time of discharge. Dictated By: EFRAÍN DIAZ/DENNIS Conf#: [id number] DID#: [id number]
== END 2017-01-01 11:55 | DRG 470 ==
LOC: MS1 13:54
PROVIDERS: ADMIT Internal Medicine Nephrology; ATTEND Internal Medicine Nephrology
PROC: 0SRR0JZ Replacement of Right Hip Joint, Femoral Surface with Synthetic Substitute, Open Approach (ICD-10-PCS; principal; 2016-12-28 07:30)
PROC: 30233N1 Transfusion of Nonautologous Red Blood Cells into Peripheral Vein, Percutaneous Approach (ICD-10-PCS; 2016-12-31)
DX: S72.011A Unspecified intracapsular fracture of right femur, initial encounter for closed fracture (principal); D64.9 Anemia, unspecified; I10 Essential (primary) hypertension; E78.5 Hyperlipidemia, unspecified; R33.9 Retention of urine, unspecified; K21.9 Gastro-esophageal reflux disease without esophagitis; I95.1 Orthostatic hypotension; W18.30XA Fall on same level, unspecified, initial encounter; Y92.009 Unspecified place in unspecified non-institutional (private) residence as the place of occurrence of the external cause
CPT/HCPCS: 36430; 71010; 73501; 73502; 73530; 80048; 80053; 81001; 83036; 84100; 85025; 85610; 85730; 86850; 86900; 86901; 86920; 87086; 88304; 88311; 93005; 97110; 97116; 97161; 97530; C1776; C9113; J0461; J0690; J1650; J2274; J2405; J2710; J2765; J7030; J7040; J7042; J7999; P9016

== ENCOUNTER 2016-12-31 15:47 | Inpatient (IN) | payer MEDICARE, OTHER ==
[~2016-12-31] VITALS: Ht 175.3 cm; Wt 59.0 kg
[2017-01-01 12:09] VITALS: BP 121/59; PULSE 81; RESP 18
[2017-01-01] MEDS ORDERED: morphine 2 MG INJ IV PRN (13:00)
[2017-01-01] MEDS ORDERED: MAGNESIUM HYDROXIDE 30ML CUP PO PRN (13:00)
[2017-01-01] MEDS ORDERED: ACETAMINOPHEN 325 MG TAB PO PRN (13:00)
[2017-01-01] MEDS ORDERED: BISACODYL (EC) 5 MG TAB PO PRN (13:00)
[2017-01-01 14:10] LABS: ADD UMIC YES; UR BILIRUBIN (Dip) NEGATIVE (NEGATIVE); UR BLOOD (Dip) TRACE (NEGATIVE); UR CLARITY CLEAR (CLEAR); UR COLOR LT. YELLOW (YELLOW); UR GLUCOSE (Dip) NEGATIVE (NEGATIVE); UR KETONES (Dip) NEGATIVE (NEGATIVE); UR LEUKOCYTE ESTERASE (Dip) NEGATIVE (NEGATIVE); UR NITRITE (Dip) NEGATIVE (NEGATIVE); UR TOTAL PROTEIN (Dip) NEGATIVE (NEGATIVE); UR UROBILINOGEN (Dip) 0.2 E.U./dL (0.1-1.0)
[2017-01-01] MEDS: SOD CHLORIDE 0.9% 1,000 ML IV SCH (14:16)
[2017-01-01] MEDS: LACTULOSE 30ML CUP PO PRN (17:51)
[2017-01-01 20:00] VITALS: BP 140/59; RESP 18
[2017-01-01] MEDS: DOCUSATE SODIUM 100 MG CAP PO SCH (20:10)
[2017-01-01] MEDS: SENNA TAB PO SCH (20:10)
[2017-01-02] MEDS: SOD CHLORIDE 0.9% 1,000 ML IV SCH ×3 (03:05→21:20)
[2017-01-02] MEDS: PANTOPRAZOLE 40 MG INJ IV SCH (05:50)
[2017-01-02 07:30] VITALS: BP 147/67; RESP 18
[2017-01-02 07:40] LABS: ADD SCAN DIFF NO
[2017-01-02 07:45] LABS: BASOPHILS % 0.4 % (0.0-2.0); EOSINOPHILS # 0.1 10^3/ul (0.0-0.5); EOSINOPHILS % 1.6 % (0.0-7.0); HEMATOCRIT 27.6 % (37.0-47.0); HEMOGLOBIN 9.3 g/dl (12.0-16.0); LYMPHOCYTES # 0.8 10^3/ul (0.8-2.9); LYMPHOCYTES % 16.1 % (15.0-51.0); MEAN CORPUSCULAR HEMOGLOBIN 31.7 pg (29.0-33.0); MEAN CORPUSCULAR HGB CONC 33.7 g/dl (32.0-37.0); MEAN CORPUSCULAR VOLUME 94.2 fl (82.0-101.0); MEAN PLATELET VOLUME 10.5 fl (7.4-10.4); MONOCYTE # 0.7 10^3/ul (0.3-0.9); MONOCYTES % 14.4 % (0.0-11.0); NEUTROPHIL # 3.5 10^3/ul (1.6-7.5); NEUTROPHILS % 67.3 % (39.0-77.0); PLATELET COUNT 232 10^3/UL (140-415); RED BLOOD COUNT 2.93 10^6/ul (4.20-5.40); RED CELL DISTRIBUTION WIDTH 13.4 % (11.5-14.5); WHITE BLOOD COUNT 5.2 10^3/ul (4.8-10.8)
[2017-01-02 08:06] LABS: ALBUMIN 3.4 g/dl (3.3-4.9); ALBUMIN/GLOBULIN RATIO 1.41; BILIRUBIN,INDIRECT 1.7 mg/dl (0-1.1); BILIRUBIN,TOTAL 1.7 mg/dl (0.2-1.3); CREATININE 0.7 mg/dl (0.44-1.00); POTASSIUM 3.8 mmol/L (3.5-5.1); TOTAL PROTEIN 5.8 g/dl (6.1-8.1)
[2017-01-02] MEDS: LACTULOSE 30ML CUP PO PRN (08:48)
[2017-01-02] MEDS: DOCUSATE SODIUM 100 MG CAP PO SCH ×2 (08:48→21:17)
[2017-01-02] MEDS: ENOXAPARIN 40 MG/0.4 ML SYG SC SCH (08:57)
--- NOTE | 2017-01-02 12:34 | CONS ---
DATE OF ADMISSION: 01/01/2017 DATE OF CONSULTATION: 01/02/2017 REHABILITATION POST ADMISSION PHYSICIAN EVALUATION REHABILITATION IMPAIRMENT CATEGORY: Right femoral neck fracture status post hemiarthroplasty. ACTIVE COMORBIDITIES: 1. Acute pain syndrome. 2. Dyslipidemia. 3. Impairments in self-care and mobility. HISTORY OF PRESENT ILLNESS: The patient is a pleasant 81-year-old female who is status post a mechanical fall with resultant right femoral neck fracture. The patient underwent a right hip hemiarthroplasty on 12/28/[address] Rosen. Her hospital course has been notable for significant pain, in addition to impairments in self-care and mobility as compared to baseline, and patient has been cleared to transfer to the rehabilitation unit for comprehensive interdisciplinary rehab care. FUNCTIONAL HISTORY: Prior to recent events, she was independent in self-care tasks and mobility. Currently, patient requires moderate to maximal assist for self-care and mobility tasks. I have reviewed the preadmission screen and patient's current functional status is consistent with the preadmission screen. SOCIAL HISTORY: The patient lives at home and hopes to return there upon discharge. PAST MEDICAL HISTORY: Hyperlipidemia. CURRENT MEDICATIONS: 1. Lovenox 40 mg subcutaneous daily. 2. [place] p.r.n. 3. Protonix. ALLERGIES: PATIENT WITH NO KNOWN DRUG ALLERGIES. PHYSICAL EXAMINATION: VITAL SIGNS: The patient is currently afebrile with stable vital signs. HEENT: The extraocular motions are intact. Oropharynx clear. NECK: Supple. LUNGS: Clear anteriorly. CARDIAC: S1, S2. ABDOMEN: Soft, nontender, positive bowel sounds. NEUROLOGIC: She is awake and alert and oriented x3. She can follow simple 1- step commands. Cranial nerves are grossly intact. She has good strength in bilateral upper extremities and the left lower extremity. Dorsiflexion and plantar flexion intact on the right. PLAN: The patient has been admitted for comprehensive interdisciplinary acute rehab and is anticipated to tolerate 3 hours of daily therapy in divided doses for at least 5 out of 7 days a week. The treatment plan will include: 1. Physical therapy to focus on bed mobility, transfers and household ambulation, with the goal of having patient reach a standby assist level. 2. Occupational therapy to focus on hygiene, grooming, dressing, bathing and toileting activities, with the goal of having patient reach a standby assist level. 3. Rehabilitation nursing for carryover of therapeutic interventions, the goal of continent of bowel and bladder, and the goal of pain adequately managed on oral medications. ESTIMATED LENGTH OF STAY: 10 days. DISPOSITION GOAL: Home. Rehabilitation Barrier: Pain Intervention for Barrier: Interdisciplinary Rehabilitation I acknowledge that I performed a full physical examination on this patient within 24 hours of admission to the rehabilitation unit and believe the patient is a good candidate for comprehensive interdisciplinary rehab care, and is anticipated to make reasonable goals in a reasonable period of time as outlined above. Dictated By: NICK STEINER/DENNIS Conf#: [id number] DID#: [id number] MTDD
--- NOTE | 2017-01-02 17:46 | PN ---
Date/Time of Note Date/Time of Note DATE: 01/02/17 TIME: 17:45 Assessment/Plan VTE Prophylaxis VTE Prophylaxis Intervention: other Lines/Catheters IV Catheter Type (from Nrsg): Saline Lock Assessment/Plan Chief Complaint/Hosp Course s/p hip fracture repair anemia plan pt/ot Problems: Subjective 24 Hr Interval Summary Respiratory: no complaints Cardiovascular: no complaints Musculoskeletal: bone/joint pain (better) Exam/Review of Systems Vital Signs Vitals Vital Signs Date Time Temp Pulse Resp B/P Pulse Ox O2 Delivery O2 Flow Rate FiO2 01/02/17 07:30 98.2 74 18 147/67 97 01/01/17 12:09 Room Air Intake and Output 01/01/17 01/01/17 01/02/17 15:00 23:00 07:00 Intake Total 984 ml 1066 ml Output Total 600 ml 550 ml Balance 384 ml 516 ml Exam Respiratory: clear to auscultation Cardiovascular: regular rate and rhythm Gastrointestinal: soft Extremities: No edema Results Result Diagram: 01/02/17 0630 01/02/17 0630 Results 24 hrs Laboratory Tests Test 01/02/17 06:30 White Blood Count 5.2 Red Blood Count 2.93 L Hemoglobin 9.3 L Hematocrit 27.6 L Mean Corpuscular Volume 94.2 Mean Corpuscular Hemoglobin 31.7 Mean Corpuscular Hemoglobin Concent 33.7 Red Cell Distribution Width 13.4 Platelet Count 232 # Mean Platelet Volume 10.5 H Neutrophils % 67.3 Lymphocytes % 16.1 Monocytes % 14.4 H Eosinophils % 1.6 Basophils % 0.4 Nucleated Red Blood Cells % 0.0 Neutrophils # 3.5 Lymphocytes # 0.8 Monocytes # 0.7 Eosinophils # 0.1 Basophils # 0.0 Nucleated Red Blood Cells # 0.0 Sodium Level 143 Potassium Level 3.8 Chloride Level 107 Carbon Dioxide Level 30 Anion Gap 10 Blood Urea Nitrogen 10 Creatinine 0.70 Glucose Level 113 Calcium Level 9.0 Total Bilirubin 1.7 H Direct Bilirubin 0.00 Indirect Bilirubin 1.7 H Aspartate Amino Transf (AST/SGOT) 73 H Alanine Aminotransferase (ALT/SGPT) 68 Alkaline Phosphatase 61 Total Protein 5.8 L Albumin 3.4 Globulin 2.40 Albumin/Globulin Ratio 1.41 Medications Medications Current Medications Docusate Sodium (Colace) 100 mg BID PO Last administered on 01/02/17t 08:48; Admin Dose 100 MG; Start 01/01/17 at 21:00 Senna (Senokot) 1 tab QHS PO Last administered on 01/01/17 20:10; Admin Dose 1 TAB; Start 01/01/17 at 21:00 Magnesium Hydroxide (Milk Of Mag) 30 ml BID PRN PO CONSTIPATION; Start 01/01/17 at 13:00 Lactulose (Enulose) 20 gm DAILY PRN PO CONSTIPATION Last administered on 08:48; Admin Dose 20 GM; Start 01/01/17 at 13:00 Acetaminophen (Tylenol Tab) 650 mg Q6H PRN PO PAIN AND OR ELEVATED TEMP; Start 01/01/17 at 13:00 Bisacodyl (Dulcolax) 10 mg BID PRN PO CONSTIPATION; Start 01/01/17 at 13:00 Morphine Sulfate (morphine) 2 mg Q3H PRN IV PAIN; Start 01/01/17 at 13:00 Acetaminophen/ Hydrocodone Bitart ([place] (5/325)) 1 tab Q3H PRN PO PAIN; Start 01/01/17 at 13:00 Enoxaparin Sodium (Lovenox) 40 mg DAILY SC Last administered on 01/02/17 08:57 ; Admin Dose 40 MG; Start 01/02/17 at 09:00 Pantoprazole 40 mg 40 mg DAILY@06 IV Last administered on 01/02/17 05:50; Admin Dose 40 MG; Start 01/02/17 at 06:00 Sodium Chloride (NS) 1,000 ml @ 80 mls/hr [id number] IV Last administered on 03:05; Admin Dose 80 MLS/HR; Start 01/01/17 at 13:00 EFRAÍN PEREIRA MD Jan 02, 2017 17:46
[2017-01-02 20:06] VITALS: BP 111/59; RESP 18
[2017-01-02] MEDS: SENNA TAB PO SCH (21:17)
[2017-01-03] MEDS: PANTOPRAZOLE 40 MG INJ IV SCH (06:15)
[2017-01-03 07:30] VITALS: BP 141/61; RESP 18
[2017-01-03] MEDS: ENOXAPARIN 40 MG/0.4 ML SYG SC SCH (08:49)
[2017-01-03] MEDS: DOCUSATE SODIUM 100 MG CAP PO SCH ×2 (08:49→21:03)
[2017-01-03] MEDS: LACTULOSE 30ML CUP PO PRN (08:49)
[2017-01-03] MEDS: FOLIC ACID 1 MG TAB PO SCH (12:23)
[2017-01-03] MEDS: FERROUS SULFATE (EC) 325 MG TAB PO SCH ×2 (12:23→21:03)
--- NOTE | 2017-01-03 13:34 | CONS ---
Date/Time of Note Date/Time of Note DATE: 01/03/17 TIME: 13:33 Consult Date/Type/Reason Admit Date/Time Jan 01, 2017 at 12:13 Initial Consult Date Subjective Comfortable Objective pulm-cta mod assist Vital Signs Date Time Temp Pulse Resp B/P Pulse Ox O2 Delivery O2 Flow Rate FiO2 01/03/17 07:30 98.4 76 18 141/61 99 01/01/17 12:09 Room Air Intake and Output 01/02/17 01/02/17 01/03/17 15:00 23:00 07:00 Intake Total 1370 ml 960 ml Output Total 300 ml Balance 1370 ml 660 ml Results/Medications Result Diagram: 01/02/1762901/02/17 0630 Medications Current Medications Docusate Sodium (Colace) 100 mg BID PO Last administered on 01/03/17 08:49; Admin Dose 100 MG; Start 01/01/17 at 21:00 Senna (Senokot) 1 tab QHS PO Last administered on 01/02/17 21:17; Admin Dose 1 TAB; Start 01/01/17 at 21:00 Magnesium Hydroxide (Milk Of Mag) 30 ml BID PRN PO CONSTIPATION; Start 01/01/17 at 13:00 Lactulose (Enulose) 20 gm DAILY PRN PO CONSTIPATION Last administered on 08:49; Admin Dose 20 GM; Start 01/01/17 at 13:00 Acetaminophen (Tylenol Tab) 650 mg Q6H PRN PO PAIN AND OR ELEVATED TEMP; Start 01/01/17 at 13:00 Bisacodyl (Dulcolax) 10 mg BID PRN PO CONSTIPATION; Start 01/01/17 at 13:00 Morphine Sulfate (morphine) 2 mg Q3H PRN IV PAIN; Start 01/01/17 at 13:00 Acetaminophen/ Hydrocodone Bitart ([place] (5/325)) 1 tab Q3H PRN PO PAIN; Start 01/01/17 at 13:00 Enoxaparin Sodium (Lovenox) 40 mg DAILY SC Last administered on 01/03/17 08:49 ; Admin Dose 40 MG; Start 01/02/17 at 09:00 Pantoprazole (Protonix Iv) 40 mg DAILY@06 IV Last administered on 01/03/17 06: 15; Admin Dose 40 MG; Start 01/02/17 at 06:00 Folic Acid (Folic Acid) 1 mg DAILY PO Last administered on 01/03/17 12:23; Admin Dose 1 MG; Start 01/03/17 at 11:00 Ferrous Sulfate (Ferrous Sulfate (Ec)) 325 mg TID PO Last administered on 12:23; Admin Dose 325 MG; Start 01/03/17 at 13:00 Assessment/Plan Additional Assessment/Plan Rehab- Right femoral neck fracture status post hemiarthroplasty. Tolerating rehab program Acute pain syndrome. Dyslipidemia. NICK SIDDIQI MD Jan 03, 2017 13:34
--- NOTE | 2017-01-03 14:37 | HP ---
Date/Time of Note Date/Time of Note DATE: 01/03/17 TIME: 14:32 Assessment/Plan VTE Prophylaxis VTE Prophylaxis Intervention: ambulation Lines/Catheters IV C[facility]ter [facility]from [facility] Saline Lock Assessment/Plan Chief Complaint/Hosp Course 1. S/p right hip arthroplasty 2. Dyslipidemia 3. Anemia Problems: Assessment/Plan 1.Continue PT 2. Iron supplement HPI/ROS Admit Date/Time Admit Date/Time Jan 01, 2017 at 12:13 Hx of Present Illness pt felt at home two weeks ago. She was seen in ER and admitted to [facility] with right hip fracture. Dr Rosen performed hemiarthroplasty and pt was transfered to Acute rehab for physical therapy ROS Constitutional: improved, no complaints Eyes: no complaints Respiratory: no complaints Cardiovascular: no complaints Gastrointestinal: no complaints Genitourinary: no complaints (01/04 right hip) Musculoskeletal: bone/joint pain (better) Neurologic: no complaints PMH/Family/Social Past Medical History Medical History: other (dyslipidemia) Past Surgical History Past Surgical Hx: no surgical history (right hemiarthroplasty recently), other Family History Significant Family History: no pertinent family hx Social History Alcohol Use: none Smoking Status: Never smoker Drug Use: none Exam/Review of Systems Vital Signs Vitals Vital Signs Date Time Temp Pulse Resp B/P Pulse Ox O2 Delivery O2 Flow Rate FiO2 01/03/17 07:30 98.4 76 18 141/61 99 01/01/17 12:09 Room Air Intake and Output 01/02/17 01/02/17 01/03/17 15:00 23:00 07:00 Intake Total 1370 ml 960 ml Output Total 300 ml Balance 1370 ml 660 ml Exam Constitutional: alert, oriented Psych: no complaints Head: normocephalic Eyes: nl conjunctiva ENMT: nl external ears & nose Neck: non-tender, supple Cardiovascular: regular rate and rhythm Gastrointestinal: soft Genitourinary - Female: nl external genitalia Musculoskeletal: range of motion (right hip decreased ROM) Neurological: [employer] II-XII intact Skin: nl turgor Labs Result Diagram: 01/02/17 0630 01/02/17 0630 Medications Medications Current Medications Docusate Sodium (Colace) 100 mg BID PO Last administered on 01/03/17t 08:49; Admin Dose 100 MG; Start 01/01/17 at 21:00 Senna (Senokot) 1 tab QHS PO Last administered on 01/02/17 21:17; Admin Dose 1 TAB; Start 01/01/17 at 21:00 Magnesium Hydroxide (Milk Of Mag) 30 ml BID PRN PO CONSTIPATION; Start 01/01/17 at 13:00 Lactulose (Enulose) 20 gm DAILY PRN PO CONSTIPATION Last administered on 08:49; Admin Dose 20 GM; Start 01/01/17 at 13:00 Acetaminophen (Tylenol Tab) 650 mg Q6H PRN PO PAIN AND OR ELEVATED TEMP; Start 01/01/17 at 13:00 Bisacodyl (Dulcolax) 10 mg BID PRN PO CONSTIPATION; Start 01/01/17 at 13:00 Morphine Sulfate (morphine) 2 mg Q3H PRN IV PAIN; Start 01/01/17 at 13:00 Acetaminophen/ Hydrocodone Bitart ([place] (5/325)) 1 tab Q3H PRN PO PAIN; Start 01/01/17 at 13:00 Enoxaparin Sodium (Lovenox) 40 mg DAILY SC Last administered on 01/03/17 08:49 ; Admin Dose 40 MG; Start 01/02/17 at 09:00 Pantoprazole (Protonix Iv) 40 mg DAILY@06 IV Last administered on 01/03/17 06: 15; Admin Dose 40 MG; Start 01/02/17 at 06:00 Folic Acid (Folic Acid) 1 mg DAILY PO Last administered on 01/03/17 12:23; Admin Dose 1 MG; Start 01/03/17 at 11:00 Ferrous Sulfate (Ferrous Sulfate (Ec)) 325 mg TID PO Last administered on 12:23; Admin Dose 325 MG; Start 01/03/17 at 13:00 WANDER CARPENTER Jan 03, 2017 14:37
[2017-01-03 19:59] VITALS: BP 128/58; RESP 18
[2017-01-03] MEDS: SENNA TAB PO SCH (21:03)
[2017-01-04] MEDS: PANTOPRAZOLE 40 MG INJ IV SCH (06:41)
[2017-01-04 07:38] LABS: ADD SCAN DIFF NO
[2017-01-04 07:44] LABS: BASOPHILS % 0.4 % (0.0-2.0); EOSINOPHILS # 0.1 10^3/ul (0.0-0.5); EOSINOPHILS % 2.8 % (0.0-7.0); HEMATOCRIT 25.2 % (37.0-47.0); HEMOGLOBIN 8.2 g/dl (12.0-16.0); LYMPHOCYTES # 1.1 10^3/ul (0.8-2.9); LYMPHOCYTES % 20.9 % (15.0-51.0); MEAN CORPUSCULAR HEMOGLOBIN 31.4 pg (29.0-33.0); MEAN CORPUSCULAR HGB CONC 32.5 g/dl (32.0-37.0); MEAN CORPUSCULAR VOLUME 96.6 fl (82.0-101.0); MEAN PLATELET VOLUME 10.3 fl (7.4-10.4); MONOCYTE # 0.6 10^3/ul (0.3-0.9); MONOCYTES % 11.8 % (0.0-11.0); NEUTROPHIL # 3.2 10^3/ul (1.6-7.5); NEUTROPHILS % 63.9 % (39.0-77.0); PLATELET COUNT 293 10^3/UL (140-415); RED BLOOD COUNT 2.61 10^6/ul (4.20-5.40); RED CELL DISTRIBUTION WIDTH 13.5 % (11.5-14.5)
[2017-01-04 08:12] VITALS: BP 140/58; RESP 18
[2017-01-04 08:16] LABS: CREATININE 0.8 mg/dl (0.44-1.00); POTASSIUM 4.1 mmol/L (3.5-5.1)
[2017-01-04] MEDS: ENOXAPARIN 40 MG/0.4 ML SYG SC SCH (09:10)
[2017-01-04] MEDS: FERROUS SULFATE (EC) 325 MG TAB PO SCH ×3 (09:10→20:48)
[2017-01-04] MEDS: DOCUSATE SODIUM 100 MG CAP PO SCH ×2 (09:11→20:48)
[2017-01-04] MEDS: FOLIC ACID 1 MG TAB PO SCH (09:11)
--- NOTE | 2017-01-04 11:21 | PN ---
Date/Time of Note Date/Time of Note DATE: 01/04/17 TIME: 11:19 Assessment/Plan VTE Prophylaxis VTE Prophylaxis Intervention: ambulation Lines/Catheters IV Catheter Type (from Nrsg): Saline Lock Assessment/Plan Chief Complaint/Hosp Course 1. S/p right hip arthroplasty 2. Dyslipidemia 3. Anemia 4. Right foot neuropathy Problems: Assessment/Plan 1. Start Neurontin for neuropathic pain Subjective 24 Hr Interval Summary Constitutional: no complaints Neurologic: focal-weakness (right foot and numbness) Exam/Review of Systems Vital Signs Vitals Vital Signs Date Time Temp Pulse Resp B/P Pulse Ox O2 Delivery O2 Flow Rate FiO2 01/04/17 08:12 98.4 108 18 140/58 97 01/01/17 12:09 Room Air Intake and Output 01/03/17 01/03/17 01/04/17 15:00 23:00 07:00 Intake Total 480 ml 1600 ml 300 ml Output Total 1400 ml Balance 480 ml 1600 ml -1100 ml Exam Constitutional: alert, oriented Respiratory: clear to auscultation Cardiovascular: regular rate and rhythm Musculoskeletal: joint tenderness (right hip) Results Result Diagram: 01/04/1728 01/04/17627 Results 24 hrs Laboratory Tests Test 01/04/17 06:28 White Blood Count 5.0 Red Blood Count 2.61 L Hemoglobin 8.2 L Hematocrit 25.2 L Mean Corpuscular Volume 96.6 Mean Corpuscular Hemoglobin 31.4 Mean Corpuscular Hemoglobin Concent 32.5 Red Cell Distribution Width 13.5 Platelet Count 293 # Mean Platelet Volume 10.3 Neutrophils % 63.9 Lymphocytes % 20.9 Monocytes % 11.8 H Eosinophils % 2.8 Basophils % 0.4 Nucleated Red Blood Cells % 0.0 Neutrophils # 3.2 Lymphocytes # 1.1 Monocytes # 0.6 Eosinophils # 0.1 Basophils # 0.0 Nucleated Red Blood Cells # 0.0 Sodium Level 143 Potassium Level 4.1 Chloride Level 106 Carbon Dioxide Level 30 Anion Gap 11 Blood Urea Nitrogen 13 Creatinine 0.80 Glucose Level 108 Calcium Level 9.0 Medications Medications Current Medications Docusate Sodium (Colace) 100 mg BID PO Last administered on 01/04/17 09:11; Admin Dose 100 MG; Start 01/01/17 at 21:00 Senna (Senokot) 1 tab QHS PO Last administered on 01/03/17 21:03; Admin Dose 1 TAB; Start 01/01/17 at 21:00 Magnesium Hydroxide (Milk Of Mag) 30 ml BID PRN PO CONSTIPATION; Start 01/01/17 at 13:00 Lactulose (Enulose) 20 gm DAILY PRN PO CONSTIPATION Last administered on 08:49; Admin Dose 20 GM; Start 01/01/17 at 13:00 Acetaminophen (Tylenol Tab) 650 mg Q6H PRN PO PAIN AND OR ELEVATED TEMP; Start 01/01/17 at 13:00 Bisacodyl (Dulcolax) 10 mg BID PRN PO CONSTIPATION; Start 01/01/17 at 13:00 Morphine Sulfate (morphine) 2 mg Q3H PRN IV PAIN; Start 01/01/17 at 13:00 Acetaminophen/ Hydrocodone Bitart ([place] (5/325)) 1 tab Q3H PRN PO PAIN; Start 01/01/17 at 13:00 Enoxaparin Sodium (Lovenox) 40 mg DAILY SC Last administered on 01/04/17 09:10 ; Admin Dose 40 MG; Start 01/02/17 at 09:00 Pantoprazole (Protonix Iv) 40 mg DAILY@06 IV Last administered on 01/04/17 06: 41; Admin Dose 40 MG; Start 01/02/17 at 06:00 Folic Acid (Folic Acid) 1 mg DAILY PO Last administered on 01/04/17 09:11; Admin Dose 1 MG; Start 01/03/17 at 11:00 Ferrous Sulfate (Ferrous Sulfate (Ec)) 325 mg TID PO Last administered on 09:10; Admin Dose 325 MG; Start 01/03/17 at 13:00 WANDER CARPENTER Jan 04, 2017 11:21
[2017-01-04] MEDS: GABAPENTIN 100 MG CAP PO SCH ×2 (11:51→20:48)
--- NOTE | 2017-01-04 12:05 | CONS ---
Date/Time of Note Date/Time of Note DATE: 01/04/17 TIME: 12:05 Consult Date/Type/Reason Admit Date/Time Jan 01, 2017 at 12:13 Subjective motivated Objective pulm-cta min assist ambulation Vital Signs Date Time Temp Pulse Resp B/P Pulse Ox O2 Delivery O2 Flow Rate FiO2 01/04/17 08:12 98.4 108 18 140/58 97 01/01/17 12:09 Room Air Intake and Output 01/03/17 01/03/17 01/04/17 15:00 23:00 07:00 Intake Total 480 ml 1600 ml 300 ml Output Total 1400 ml Balance 480 ml 1600 ml -1100 ml Results/Medications Result Diagram: 01/04/1728 01/04/17627 Results 24 hrs Laboratory Tests Test 01/04/17 06:28 White Blood Count 5.0 Red Blood Count 2.61 L Hemoglobin 8.2 L Hematocrit 25.2 L Mean Corpuscular Volume 96.6 Mean Corpuscular Hemoglobin 31.4 Mean Corpuscular Hemoglobin Concent 32.5 Red Cell Distribution Width 13.5 Platelet Count 293 # Mean Platelet Volume 10.3 Neutrophils % 63.9 Lymphocytes % 20.9 Monocytes % 11.8 H Eosinophils % 2.8 Basophils % 0.4 Nucleated Red Blood Cells % 0.0 Neutrophils # 3.2 Lymphocytes # 1.1 Monocytes # 0.6 Eosinophils # 0.1 Basophils # 0.0 Nucleated Red Blood Cells # 0.0 Sodium Level 143 Potassium Level 4.1 Chloride Level 106 Carbon Dioxide Level 30 Anion Gap 11 Blood Urea Nitrogen 13 Creatinine 0.80 Glucose Level 108 Calcium Level 9.0 Medications Current Medications Docusate Sodium (Colace) 100 mg BID PO Last administered on 01/04/17 09:11; Admin Dose 100 MG; Start 01/01/17 at 21:00 Senna (Senokot) 1 tab QHS PO Last administered on 01/03/17 21:03; Admin Dose 1 TAB; Start 01/01/17 at 21:00 Magnesium Hydroxide (Milk Of Mag) 30 ml BID PRN PO CONSTIPATION; Start 01/01/17 at 13:00 Lactulose (Enulose) 20 gm DAILY PRN PO CONSTIPATION Last administered on 08:49; Admin Dose 20 GM; Start 01/01/17 at 13:00 Acetaminophen (Tylenol Tab) 650 mg Q6H PRN PO PAIN AND OR ELEVATED TEMP; Start 01/01/17 at 13:00 Bisacodyl (Dulcolax) 10 mg BID PRN PO CONSTIPATION; Start 01/01/17 at 13:00 Morphine Sulfate (morphine) 2 mg Q3H PRN IV PAIN; Start 01/01/17 at 13:00 Acetaminophen/ Hydrocodone Bitart ([place] (5/325)) 1 tab Q3H PRN PO PAIN; Start 01/01/17 at 13:00 Enoxaparin Sodium (Lovenox) 40 mg DAILY SC Last administered on 01/04/17 09:10 ; Admin Dose 40 MG; Start 01/02/17 at 09:00 Pantoprazole (Protonix Iv) 40 mg DAILY@06 IV Last administered on 01/04/17 06: 41; Admin Dose 40 MG; Start 01/02/17 at 06:00 Folic Acid (Folic Acid) 1 mg DAILY PO Last administered on 01/04/17 09:11; Admin Dose 1 MG; Start 01/03/17 at 11:00 Ferrous Sulfate (Ferrous Sulfate (Ec)) 325 mg TID PO Last administered on 09:10; Admin Dose 325 MG; Start 01/03/17 at 13:00 Gabapentin (Neurontin) 100 mg BID PO Last administered on 01/04/17 11:51; Admin Dose 100 MG; Start 01/04/17 at 11:30 Assessment/Plan Additional Assessment/Plan Rehab- Right femoral neck fracture status post hemiarthroplasty. Progressing with rehab program Acute pain syndrome-improving Dyslipidemia. NICK SIDDIQI MD Jan 04, 2017 12:05
[2017-01-04 20:00] VITALS: BP 117/59; RESP 20
[2017-01-04] MEDS: SENNA TAB PO SCH (20:48)
[2017-01-05] MEDS: PANTOPRAZOLE 40 MG INJ IV SCH (06:03)
[2017-01-05] MEDS: GABAPENTIN 100 MG CAP PO SCH ×2 (09:07→20:37)
[2017-01-05] MEDS: FERROUS SULFATE (EC) 325 MG TAB PO SCH ×3 (09:07→20:37)
[2017-01-05] MEDS: DOCUSATE SODIUM 100 MG CAP PO SCH ×2 (09:07→20:43)
[2017-01-05] MEDS: FOLIC ACID 1 MG TAB PO SCH (09:07)
[2017-01-05] MEDS: ENOXAPARIN 40 MG/0.4 ML SYG SC SCH (09:08)
[2017-01-05] MEDS: HYDROCODONE/APAP (5/325) TAB PO PRN (10:01)
--- NOTE | 2017-01-05 15:56 | PN ---
Date/Time of Note Date/Time of Note DATE: 01/05/17 TIME: 15:55 Assessment/Plan VTE Prophylaxis VTE Prophylaxis Intervention: other Lines/Catheters IV Catheter Type (from Nrsg): Saline Lock Assessment/Plan Chief Complaint/Hosp Course s/p hip fracture repair anemia plan pt/ot ck labs Problems: Subjective 24 Hr Interval Summary Respiratory: no complaints Gastrointestinal: no complaints Musculoskeletal: restricted range of motion Exam/Review of Systems Vital Signs Vitals Vital Signs Date Time Temp Pulse Resp B/P Pulse Ox O2 Delivery O2 Flow Rate FiO2 01/04/17 20:00 98.1 78 20 117/59 97 01/01/17 12:09 Room Air Intake and Output 01/04/17 01/04/17 01/05/17 15:00 23:00 07:00 Intake Total 600 ml 1560 ml 600 ml Output Total 200 ml 500 ml 500 ml Balance 400 ml 1060 ml 100 ml Exam Neck: supple Respiratory: clear to auscultation Cardiovascular: regular rate and rhythm Gastrointestinal: soft Extremities: No edema Results Result Diagram: 01/04/1728 01/04/17627 Medications Medications Current Medications Docusate Sodium (Colace) 100 mg BID PO Last administered on 01/05/17 09:07; Admin Dose 100 MG; Start 01/01/17 at 21:00 Senna (Senokot) 1 tab QHS PO Last administered on 01/04/17 20:48; Admin Dose 1 TAB; Start 01/01/17 at 21:00 Magnesium Hydroxide (Milk Of Mag) 30 ml BID PRN PO CONSTIPATION; Start 01/01/17 at 13:00 Lactulose (Enulose) 20 gm DAILY PRN PO CONSTIPATION Last administered on 08:49; Admin Dose 20 GM; Start 01/01/17 at 13:00 Acetaminophen (Tylenol Tab) 650 mg Q6H PRN PO PAIN AND OR ELEVATED TEMP; Start 01/01/17 at 13:00 Bisacodyl (Dulcolax) 10 mg BID PRN PO CONSTIPATION; Start 01/01/17 at 13:00 Morphine Sulfate (morphine) 2 mg Q3H PRN IV PAIN; Start 01/01/17 at 13:00 Acetaminophen/ Hydrocodone Bitart ([place] (5/325)) 1 tab Q3H PRN PO PAIN Last administered on 01/05/17 10:01; Admin Dose 1 TAB; Start 01/01/17 at 13:00 Enoxaparin Sodium (Lovenox) 40 mg DAILY SC Last administered on 01/05/17 09:08 ; Admin Dose 40 MG; Start 01/02/17 at 09:00 Pantoprazole (Protonix Iv) 40 mg DAILY@06 IV Last administered on 01/05/17 06: 03; Admin Dose 40 MG; Start 01/02/17 at 06:00 Folic Acid (Folic Acid) 1 mg DAILY PO Last administered on 01/05/17 09:07; Admin Dose 1 MG; Start 01/03/17 at 11:00 Ferrous Sulfate (Ferrous Sulfate (Ec)) 325 mg TID PO Last administered on 13:38; Admin Dose 325 MG; Start 01/03/17 at 13:00 Gabapentin (Neurontin) 100 mg BID PO Last administered on 01/05/17 09:07; Admin Dose 100 MG; Start 01/04/17 at 11:30 EFRAÍN PEREIRA MD Jan 05, 2017 15:56
[2017-01-05] MEDS: SENNA TAB PO SCH (20:43)
[2017-01-05 20:54] VITALS: BP 108/53; RESP 18
[2017-01-06] MEDS: PANTOPRAZOLE (EC) 40 MG TAB PO SCH (06:17)
[2017-01-06 07:34] LABS: ADD SCAN DIFF NO
[2017-01-06 07:45] LABS: BASOPHILS % 0.4 % (0.0-2.0); EOSINOPHILS # 0.2 10^3/ul (0.0-0.5); EOSINOPHILS % 3.3 % (0.0-7.0); HEMOGLOBIN 8.6 g/dl (12.0-16.0); LYMPHOCYTES # 1.2 10^3/ul (0.8-2.9); LYMPHOCYTES % 23.5 % (15.0-51.0); MEAN CORPUSCULAR HEMOGLOBIN 31.3 pg (29.0-33.0); MEAN CORPUSCULAR HGB CONC 31.9 g/dl (32.0-37.0); MEAN CORPUSCULAR VOLUME 98.2 fl (82.0-101.0); MEAN PLATELET VOLUME 10.1 fl (7.4-10.4); MONOCYTE # 0.6 10^3/ul (0.3-0.9); MONOCYTES % 11.7 % (0.0-11.0); NEUTROPHIL # 3.1 10^3/ul (1.6-7.5); NEUTROPHILS % 60.5 % (39.0-77.0); PLATELET COUNT 383 10^3/UL (140-415); RED BLOOD COUNT 2.75 10^6/ul (4.20-5.40); RED CELL DISTRIBUTION WIDTH 13.7 % (11.5-14.5); WHITE BLOOD COUNT 5.1 10^3/ul (4.8-10.8)
[2017-01-06] MEDS: GABAPENTIN 100 MG CAP PO SCH ×2 (08:24→21:03)
[2017-01-06] MEDS: FOLIC ACID 1 MG TAB PO SCH (08:25)
[2017-01-06] MEDS: FERROUS SULFATE (EC) 325 MG TAB PO SCH ×3 (08:25→21:03)
[2017-01-06] MEDS: DOCUSATE SODIUM 100 MG CAP PO SCH ×2 (08:25→21:03)
[2017-01-06 08:28] VITALS: BP 121/59; PULSE 106; RESP 16
[2017-01-06] MEDS: ENOXAPARIN 40 MG/0.4 ML SYG SC SCH (08:28)
--- NOTE | 2017-01-06 12:22 | CONS ---
Date/Time of Note Date/Time of Note DATE: 01/06/17 TIME: 12:21 Consult Date/Type/Reason Admit Date/Time Jan 01, 2017 at 12:13 Objective Vital Signs Date Time Temp Pulse Resp B/P Pulse Ox O2 Delivery O2 Flow Rate FiO2 01/06/17 08:28 106 16 121/59 98 Room Air 01/05/17 20:54 98.6 INTERDISCIPLINARY TEAM CONFERENCE BOWEL- Cont BLADDER-Cont SKIN- intact OT- DRESSING-min BATHING-min TOILETING-min PT- BED MOBILITY-min TRANSFERS-min AMBULATION-min 80 feet A/P- Interdisciplinary team conference held today. Please see interdisciplinary sheet. Working toward d.c. on 01/14 with post discharge follow up of physical therapy, occupational therapy. Results/Medications Result Diagram: 01/06/17 0600 01/04/17 0628 Results 24 hrs Laboratory Tests Test 01/06/17 06:00 White Blood Count 5.1 Red Blood Count 2.75 L Hemoglobin 8.6 L Hematocrit 27.0 L Mean Corpuscular Volume 98.2 Mean Corpuscular Hemoglobin 31.3 Mean Corpuscular Hemoglobin Concent 31.9 L Red Cell Distribution Width 13.7 Platelet Count 383 # Mean Platelet Volume 10.1 Neutrophils % 60.5 Lymphocytes % 23.5 Monocytes % 11.7 H Eosinophils % 3.3 Basophils % 0.4 Nucleated Red Blood Cells % 0.0 Neutrophils # 3.1 Lymphocytes # 1.2 Monocytes # 0.6 Eosinophils # 0.2 Basophils # 0.0 Nucleated Red Blood Cells # 0.0 Medications Current Medications Docusate Sodium (Colace) 100 mg BID PO Last administered on 01/06/17 08:25; Admin Dose 100 MG; Start 01/01/17 at 21:00 Senna (Senokot) 1 tab QHS PO Last administered on 01/04/17 20:48; Admin Dose 1 TAB; Start 01/01/17 at 21:00 Magnesium Hydroxide (Milk Of Mag) 30 ml BID PRN PO CONSTIPATION; Start 01/01/17 at 13:00 Lactulose (Enulose) 20 gm DAILY PRN PO CONSTIPATION Last administered on 08:49; Admin Dose 20 GM; Start 01/01/17 at 13:00 Acetaminophen (Tylenol Tab) 650 mg Q6H PRN PO PAIN AND OR ELEVATED TEMP; Start 01/01/17 at 13:00 Bisacodyl (Dulcolax) 10 mg BID PRN PO CONSTIPATION; Start 01/01/17 at 13:00 Morphine Sulfate (morphine) 2 mg Q3H PRN IV PAIN; Start 01/01/17 at 13:00 Acetaminophen/ Hydrocodone Bitart ([place] (5/325)) 1 tab Q3H PRN PO PAIN Last administered on 01/05/17 10:01; Admin Dose 1 TAB; Start 01/01/17 at 13:00 Enoxaparin Sodium (Lovenox) 40 mg DAILY SC Last administered on 01/06/17 08:28 ; Admin Dose 40 MG; Start 01/02/17 at 09:00 Folic Acid (Folic Acid) 1 mg DAILY PO Last administered on 01/06/17 08:25; Admin Dose 1 MG; Start 01/03/17 at 11:00 Ferrous Sulfate (Ferrous Sulfate (Ec)) 325 mg TID PO Last administered on 12:12; Admin Dose 325 MG; Start 01/03/17 at 13:00 Gabapentin (Neurontin) 100 mg BID PO Last administered on 01/06/17 08:24; Admin Dose 100 MG; Start 01/04/17 at 11:30 Pantoprazole (Protonix Tab) 40 mg DAILY@06 PO Last administered on 01/06/17 06 :17; Admin Dose 40 MG; Start 01/06/17 at 06:00 NICK SIDDIQI MD Jan 06, 2017 12:22 NICK SIDDIQI MD Jan 06, 2017 12:22
--- NOTE | 2017-01-06 17:37 | PN ---
Date/Time of Note Date/Time of Note DATE: 01/06/17 TIME: 17:36 Assessment/Plan VTE Prophylaxis VTE Prophylaxis Intervention: other Lines/Catheters IV [facility]from [facility] Saline Lock Urinary Cath still in place: No Assessment/Plan Chief Complaint/Hosp Course s/p hip fracture repair anemia UTI plan pt/ot ck labs Problems: Subjective 24 Hr Interval Summary Cardiovascular: no complaints Gastrointestinal: no complaints Exam/Review of Systems Vital Signs Vitals Vital Signs Date Time Temp Pulse Resp B/P Pulse Ox O2 Delivery O2 Flow Rate FiO2 01/06/17 08:28 106 16 121/59 98 Room Air 01/05/17 20:54 98.6 Exam Respiratory: clear to auscultation Cardiovascular: regular rate and rhythm Gastrointestinal: soft Musculoskeletal: nl extremities to inspection Results Result Diagram: 01/06/17 0600 01/04/17 0628 Results 24 hrs Laboratory Tests Test 01/06/17 06:00 White Blood Count 5.1 Red Blood Count 2.75 L Hemoglobin 8.6 L Hematocrit 27.0 L Mean Corpuscular Volume 98.2 Mean Corpuscular Hemoglobin 31.3 Mean Corpuscular Hemoglobin Concent 31.9 L Red Cell Distribution Width 13.7 Platelet Count 383 # Mean Platelet Volume 10.1 Neutrophils % 60.5 Lymphocytes % 23.5 Monocytes % 11.7 H Eosinophils % 3.3 Basophils % 0.4 Nucleated Red Blood Cells % 0.0 Neutrophils # 3.1 Lymphocytes # 1.2 Monocytes # 0.6 Eosinophils # 0.2 Basophils # 0.0 Nucleated Red Blood Cells # 0.0 Medications Medications Current Medications Docusate Sodium (Colace) 100 mg BID PO Last administered on 01/06/17 08:25; Admin Dose 100 MG; Start 01/01/17 at 21:00 Senna (Senokot) 1 tab QHS PO Last administered on 01/04/17 20:48; Admin Dose 1 TAB; Start 01/01/17 at 21:00 Magnesium Hydroxide (Milk Of Mag) 30 ml BID PRN PO CONSTIPATION; Start 01/01/17 at 13:00 Lactulose (Enulose) 20 gm DAILY PRN PO CONSTIPATION Last administered on 08:49; Admin Dose 20 GM; Start 01/01/17 at 13:00 Acetaminophen (Tylenol Tab) 650 mg Q6H PRN PO PAIN AND OR ELEVATED TEMP; Start 01/01/17 at 13:00 Bisacodyl (Dulcolax) 10 mg BID PRN PO CONSTIPATION; Start 01/01/17 at 13:00 Morphine Sulfate (morphine) 2 mg Q3H PRN IV PAIN; Start 01/01/17 at 13:00 Acetaminophen/ Hydrocodone Bitart ([place] (5/325)) 1 tab Q3H PRN PO PAIN Last administered on 01/05/17 10:01; Admin Dose 1 TAB; Start 01/01/17 at 13:00 Enoxaparin Sodium (Lovenox) 40 mg DAILY SC Last administered on 01/06/17 08:28 ; Admin Dose 40 MG; Start 01/02/17 at 09:00 Folic Acid (Folic Acid) 1 mg DAILY PO Last administered on 01/06/17 08:25; Admin Dose 1 MG; Start 01/03/17 at 11:00 Ferrous Sulfate (Ferrous Sulfate (Ec)) 325 mg TID PO Last administered on 12:12; Admin Dose 325 MG; Start 01/03/17 at 13:00 Gabapentin (Neurontin) 100 mg BID PO Last administered on 01/06/17 08:24; Admin Dose 100 MG; Start 01/04/17 at 11:30 Pantoprazole (Protonix Tab) 40 mg DAILY@06 PO Last administered on 01/06/17 06 :17; Admin Dose 40 MG; Start 01/06/17 at 06:00 EFRAÍN PEREIRA MD Jan 06, 2017 17:37
[2017-01-06] MEDS: CIPROFLOXACIN 500 MG TAB PO SCH (18:12)
[2017-01-06 20:09] VITALS: BP 114/60; RESP 18
[2017-01-06] MEDS: SENNA TAB PO SCH (21:03)
[2017-01-07] MEDS: PANTOPRAZOLE (EC) 40 MG TAB PO SCH (05:23)
[2017-01-07] MEDS: CIPROFLOXACIN 500 MG TAB PO SCH ×2 (05:23→17:57)
[2017-01-07 08:24] VITALS: BP 145/65; RESP 18
[2017-01-07] MEDS: DOCUSATE SODIUM 100 MG CAP PO SCH ×2 (09:01→20:15)
[2017-01-07] MEDS: GABAPENTIN 100 MG CAP PO SCH ×2 (09:01→20:15)
[2017-01-07] MEDS: FERROUS SULFATE (EC) 325 MG TAB PO SCH ×3 (09:01→20:15)
[2017-01-07] MEDS: FOLIC ACID 1 MG TAB PO SCH (09:01)
[2017-01-07] MEDS: LACTULOSE 30ML CUP PO PRN (09:01)
[2017-01-07] MEDS: ENOXAPARIN 40 MG/0.4 ML SYG SC SCH (09:02)
--- NOTE | 2017-01-07 12:09 | CONS ---
Date/Time of Note Date/Time of Note DATE: 01/07/17 TIME: 12:08 Consult Date/Type/Reason Admit Date/Time Jan 01, 2017 at 12:13 Subjective comfortable Objective pulm-cta sba ambulation Vital Signs Date Time Temp Pulse Resp B/P Pulse Ox O2 Delivery O2 Flow Rate FiO2 01/07/17 08:24 98.2 73 18 145/65 97 01/06/17 08:28 Room Air Intake and Output 01/06/17 01/06/17 01/07/17 15:00 23:00 07:00 Intake Total 980 ml 1000 ml Output Total 950 ml Balance 30 ml 1000 ml Results/Medications Result Diagram: 01/06/17 0600 01/04/17 06 Medications Current Medications Docusate Sodium (Colace) 100 mg BID PO Last administered on 01/07/17 09:01; Admin Dose 100 MG; Start 01/01/17 at 21:00 Senna (Senokot) 1 tab QHS PO Last administered on 01/06/17 21:03; Admin Dose 1 TAB; Start 01/01/17 at 21:00 Magnesium Hydroxide (Milk Of Mag) 30 ml BID PRN PO CONSTIPATION; Start 01/01/17 at 13:00 Lactulose (Enulose) 20 gm DAILY PRN PO CONSTIPATION Last administered on 09:01; Admin Dose 20 GM; Start 01/01/17 at 13:00 Acetaminophen (Tylenol Tab) 650 mg Q6H PRN PO PAIN AND OR ELEVATED TEMP; Start 01/01/17 at 13:00 Bisacodyl (Dulcolax) 10 mg BID PRN PO CONSTIPATION; Start 01/01/17 at 13:00 Morphine Sulfate (morphine) 2 mg Q3H PRN IV PAIN; Start 01/01/17 at 13:00 Acetaminophen/ Hydrocodone Bitart ([place] (5/325)) 1 tab Q3H PRN PO PAIN Last administered on 01/05/17 10:01; Admin Dose 1 TAB; Start 01/01/17 at 13:00 Enoxaparin Sodium (Lovenox) 40 mg DAILY SC Last administered on 01/07/17 09:02 ; Admin Dose 40 MG; Start 01/02/17 at 09:00 Folic Acid (Folic Acid) 1 mg DAILY PO Last administered on 01/07/17 09:01; Admin Dose 1 MG; Start 01/03/17 at 11:00 Ferrous Sulfate (Ferrous Sulfate (Ec)) 325 mg TID PO Last administered on 09:01; Admin Dose 325 MG; Start 01/03/17 at 13:00 Gabapentin (Neurontin) 100 mg BID PO Last administered on 01/07/17 09:01; Admin Dose 100 MG; Start 01/04/17 at 11:30 Pantoprazole (Protonix Tab) 40 mg DAILY@06 PO Last administered on 01/07/17 05 :23; Admin Dose 40 MG; Start 01/06/17 at 06:00 Ciprofloxacin (Cipro) 500 mg BID@06,18 PO Last administered on 01/07/17 05:23 ; Admin Dose 500 MG; Start 01/06/17 at 18:00 Assessment/Plan Additional Assessment/Plan Rehab- Right femoral neck fracture status post hemiarthroplasty. Progressing with rehab activities Acute pain syndrome-improving Dyslipidemia. NICK SIDDIQI MD Jan 07, 2017 12:09
[2017-01-07] MEDS: SENNA TAB PO SCH (20:15)
[2017-01-07 21:07] VITALS: BP 110/55; RESP 18
--- NOTE | 2017-01-08 00:36 | PN ---
Date/Time of Note Date/Time of Note DATE: 01/08/17 TIME: 00:35 Assessment/Plan VTE Prophylaxis VTE Prophylaxis Intervention: other Lines/Catheters IV Catheter Type (from Nrs): Saline Lock Urinary Cath still in place: No Assessment/Plan Chief Complaint/Hosp Course s/p hip fracture repair anemia UTI better plan pt/ot Problems: Subjective 24 Hr Interval Summary Cardiovascular: no complaints Gastrointestinal: no complaints Exam/Review of Systems Vital Signs Vitals Vital Signs Date Time Temp Pulse Resp B/P Pulse Ox O2 Delivery O2 Flow Rate FiO2 01/07/17 21:07 98.7 76 18 110/55 97 01/06/17 08:28 Room Air Intake and Output 01/07/17 01/07/17 01/08/17 15:00 23:00 07:00 Intake Total 720 ml 600 ml Output Total 500 ml 300 ml Balance 220 ml 300 ml Exam Respiratory: clear to auscultation Cardiovascular: regular rate and rhythm Gastrointestinal: soft Musculoskeletal: nl extremities to inspection Results Result Diagram: 01/06/17 0600 01/04/17 0628 Medications Medications Current Medications Docusate Sodium (Colace) 100 mg BID PO Last administered on 01/07/17 20:15; Admin Dose 100 MG; Start 01/01/17 at 21:00 Senna (Senokot) 1 tab QHS PO Last administered on 01/07/17 20:15; Admin Dose 1 TAB; Start 01/01/17 at 21:00 Magnesium Hydroxide (Milk Of Mag) 30 ml BID PRN PO CONSTIPATION; Start 01/01/17 at 13:00 Lactulose (Enulose) 20 gm DAILY PRN PO CONSTIPATION Last administered on 09:01; Admin Dose 20 GM; Start 01/01/17 at 13:00 Acetaminophen (Tylenol Tab) 650 mg Q6H PRN PO PAIN AND OR ELEVATED TEMP; Start 01/01/17 at 13:00 Bisacodyl (Dulcolax) 10 mg BID PRN PO CONSTIPATION; Start 01/01/17 at 13:00 Morphine Sulfate (morphine) 2 mg Q3H PRN IV PAIN; Start 01/01/17 at 13:00 Acetaminophen/ Hydrocodone Bitart ([place] (5/325)) 1 tab Q3H PRN PO PAIN Last administered on 01/05/17 10:01; Admin Dose 1 TAB; Start 01/01/17 at 13:00 Enoxaparin Sodium (Lovenox) 40 mg DAILY SC Last administered on 01/07/17 09:02 ; Admin Dose 40 MG; Start 01/02/17 at 09:00 Folic Acid (Folic Acid) 1 mg DAILY PO Last administered on 01/07/17 09:01; Admin Dose 1 MG; Start 01/03/17 at 11:00 Ferrous Sulfate (Ferrous Sulfate (Ec)) 325 mg TID PO Last administered on 20:15; Admin Dose 325 MG; Start 01/03/17 at 13:00 Gabapentin (Neurontin) 100 mg BID PO Last administered on 01/07/17 20:15; Admin Dose 100 MG; Start 01/04/17 at 11:30 Pantoprazole (Protonix Tab) 40 mg DAILY@06 PO Last administered on 01/07/17 05 :23; Admin Dose 40 MG; Start 01/06/17 at 06:00 Ciprofloxacin (Cipro) 500 mg BID@,18 PO Last administered on 01/07/17 17:57 ; Admin Dose 500 MG; Start 01/06/17 at 18:00 EFRAÍN PEREIRA MD Jan 08, 2017 00:36
[2017-01-08] MEDS: PANTOPRAZOLE (EC) 40 MG TAB PO SCH (06:05)
[2017-01-08] MEDS: CIPROFLOXACIN 500 MG TAB PO SCH ×2 (06:05→18:44)
[2017-01-08] MEDS: DOCUSATE SODIUM 100 MG CAP PO SCH ×2 (11:02→20:51)
[2017-01-08] MEDS: GABAPENTIN 100 MG CAP PO SCH ×2 (11:03→20:51)
[2017-01-08] MEDS: ENOXAPARIN 40 MG/0.4 ML SYG SC SCH (11:04)
[2017-01-08] MEDS: FOLIC ACID 1 MG TAB PO SCH (11:11)
[2017-01-08] MEDS: FERROUS SULFATE (EC) 325 MG TAB PO SCH ×3 (11:12→20:51)
--- NOTE | 2017-01-08 11:56 | CONS ---
Date/Time of Note Date/Time of Note DATE: 01/08/17 TIME: 11:55 Consult Date/Type/Reason Admit Date/Time Jan 01, 2017 at 12:13 Subjective Doing well Objective sba ambulation Vital Signs Date Time Temp Pulse Resp B/P Pulse Ox O2 Delivery O2 Flow Rate FiO2 01/07/17 21:07 98.7 76 18 110/55 97 01/06/17 08:28 Room Air Intake and Output 01/07/17 01/07/17 01/08/17 15:00 23:00 07:00 Intake Total 720 ml 600 ml 1060 ml Output Total 500 ml 300 ml Balance 220 ml 300 ml 1060 ml Results/Medications Result Diagram: 01/06/17 0600 01/04/17 0628 Medications Current Medications Docusate Sodium (Colace) 100 mg BID PO Last administered on 01/08/17 11:02; Admin Dose 100 MG; Start 01/01/17 at 21:00 Senna (Senokot) 1 tab QHS PO Last administered on 01/07/17 20:15; Admin Dose 1 TAB; Start 01/01/17 at 21:00 Magnesium Hydroxide (Milk Of Mag) 30 ml BID PRN PO CONSTIPATION; Start 01/01/17 at 13:00 Lactulose (Enulose) 20 gm DAILY PRN PO CONSTIPATION Last administered on 09:01; Admin Dose 20 GM; Start 01/01/17 at 13:00 Acetaminophen (Tylenol Tab) 650 mg Q6H PRN PO PAIN AND OR ELEVATED TEMP; Start 01/01/17 at 13:00 Bisacodyl (Dulcolax) 10 mg BID PRN PO CONSTIPATION; Start 01/01/17 at 13:00 Morphine Sulfate (morphine) 2 mg Q3H PRN IV PAIN; Start 01/01/17 at 13:00 Acetaminophen/ Hydrocodone Bitart ([place] (5/325)) 1 tab Q3H PRN PO PAIN Last administered on 01/05/17 10:01; Admin Dose 1 TAB; Start 01/01/17 at 13:00 Enoxaparin Sodium (Lovenox) 40 mg DAILY SC Last administered on 01/08/17 11:04 ; Admin Dose 40 MG; Start 01/02/17 at 09:00 Folic Acid (Folic Acid) 1 mg DAILY PO Last administered on 01/08/17 11:11; Admin Dose 1 MG; Start 01/03/17 at 11:00 Ferrous Sulfate (Ferrous Sulfate (Ec)) 325 mg TID PO Last administered on 11:12; Admin Dose 325 MG; Start 01/03/17 at 13:00 Gabapentin (Neurontin) 100 mg BID PO Last administered on 01/08/17 11:03; Admin Dose 100 MG; Start 01/04/17 at 11:30 Pantoprazole (Protonix Tab) 40 mg DAILY@06 PO Last administered on 01/08/17 06 :05; Admin Dose 40 MG; Start 01/06/17 at 06:00 Ciprofloxacin (Cipro) 500 mg BID@,18 PO Last administered on 01/08/17 06:05 ; Admin Dose 500 MG; Start 01/06/17 at 18:00 Assessment/Plan Additional Assessment/Plan Rehab- Right femoral neck fracture status post hemiarthroplasty. Continue rehab program Acute pain syndrome-improving Dyslipidemia. Anemia NICK SIDDIQI MD Jan 08, 2017 11:56
--- NOTE | 2017-01-08 19:43 | PN ---
Date/Time of Note Date/Time of Note DATE: 01/08/17 TIME: 19:42 Assessment/Plan VTE Prophylaxis VTE Prophylaxis Intervention: other Lines/Catheters IV Catheter Type (from Nrs): Saline Lock Urinary Cath still in place: No Assessment/Plan Chief Complaint/Hosp Course s/p hip fracture repair anemia UTI better plan pt/ot Problems: Subjective 24 Hr Interval Summary Cardiovascular: no complaints Gastrointestinal: no complaints Genitourinary: no complaints Exam/Review of Systems Vital Signs Vitals Vital Signs Date Time Temp Pulse Resp B/P Pulse Ox O2 Delivery O2 Flow Rate FiO2 01/07/17 21:07 98.7 76 18 110/55 97 01/06/17 08:28 Room Air Intake and Output 01/07/17 01/07/17 01/08/17 15:00 23:00 07:00 Intake Total 720 ml 600 ml 1060 ml Output Total 500 ml 300 ml Balance 220 ml 300 ml 1060 ml Exam Respiratory: clear to auscultation Cardiovascular: regular rate and rhythm Gastrointestinal: soft Musculoskeletal: nl extremities to inspection Results Result Diagram: 01/06/17 0600 01/04/17 0628 Medications Medications Current Medications Docusate Sodium (Colace) 100 mg BID PO Last administered on 01/08/17 11:02; Admin Dose 100 MG; Start 01/01/17 at 21:00 Senna (Senokot) 1 tab QHS PO Last administered on 01/07/17 20:15; Admin Dose 1 TAB; Start 01/01/17 at 21:00 Magnesium Hydroxide (Milk Of Mag) 30 ml BID PRN PO CONSTIPATION; Start 01/01/17 at 13:00 Lactulose (Enulose) 20 gm DAILY PRN PO CONSTIPATION Last administered on 09:01; Admin Dose 20 GM; Start 01/01/17 at 13:00 Acetaminophen (Tylenol Tab) 650 mg Q6H PRN PO PAIN AND OR ELEVATED TEMP; Start 01/01/17 at 13:00 Bisacodyl (Dulcolax) 10 mg BID PRN PO CONSTIPATION; Start 01/01/17 at 13:00 Morphine Sulfate (morphine) 2 mg Q3H PRN IV PAIN; Start 01/01/17 at 13:00 Acetaminophen/ Hydrocodone Bitart ([place] (5/325)) 1 tab Q3H PRN PO PAIN Last administered on 01/05/17 10:01; Admin Dose 1 TAB; Start 01/01/17 at 13:00 Enoxaparin Sodium (Lovenox) 40 mg DAILY SC Last administered on 01/08/17 11:04 ; Admin Dose 40 MG; Start 01/02/17 at 09:00 Folic Acid (Folic Acid) 1 mg DAILY PO Last administered on 01/08/17 11:11; Admin Dose 1 MG; Start 01/03/17 at 11:00 Ferrous Sulfate (Ferrous Sulfate (Ec)) 325 mg TID PO Last administered on 13:00; Admin Dose 325 MG; Start 01/03/17 at 13:00 Gabapentin (Neurontin) 100 mg BID PO Last administered on 01/08/17 11:03; Admin Dose 100 MG; Start 01/04/17 at 11:30 Pantoprazole (Protonix Tab) 40 mg DAILY@06 PO Last administered on 01/08/17 06 :05; Admin Dose 40 MG; Start 01/06/17 at 06:00 Ciprofloxacin (Cipro) 500 mg BID@,18 PO Last administered on 01/08/17 18:44 ; Admin Dose 500 MG; Start 01/06/17 at 18:00 EFRAÍN PEREIRA MD Jan 08, 2017 19:43
[2017-01-08 19:55] VITALS: BP 110/52; RESP 18
[2017-01-08] MEDS: SENNA TAB PO SCH (20:52)
[2017-01-09] MEDS: CIPROFLOXACIN 500 MG TAB PO SCH ×2 (06:52→18:22)
[2017-01-09] MEDS: PANTOPRAZOLE (EC) 40 MG TAB PO SCH (06:52)
[2017-01-09 07:30] VITALS: BP 128/55; RESP 18
[2017-01-09] MEDS: GABAPENTIN 100 MG CAP PO SCH ×2 (10:24→20:46)
[2017-01-09] MEDS: FOLIC ACID 1 MG TAB PO SCH (10:24)
[2017-01-09] MEDS: DOCUSATE SODIUM 100 MG CAP PO SCH ×2 (10:24→20:45)
[2017-01-09] MEDS: FERROUS SULFATE (EC) 325 MG TAB PO SCH ×3 (10:24→20:45)
[2017-01-09] MEDS: ENOXAPARIN 40 MG/0.4 ML SYG SC SCH (10:28)
--- NOTE | 2017-01-09 11:58 | CONS ---
Date/Time of Note Date/Time of Note DATE: 01/09/17 TIME: 11:58 Consult Date/Type/Reason Admit Date/Time Jan 01, 2017 at 12:13 Objective Vital Signs Date Time Temp Pulse Resp B/P Pulse Ox O2 Delivery O2 Flow Rate FiO2 01/08/17 19:55 98.2 75 18 110/52 94 01/06/17 08:28 Room Air Intake and Output 01/08/17 01/08/17 01/09/17 15:00 23:00 07:00 Intake Total 720 ml 470 ml 120 ml Output Total 400 ml 200 ml 450 ml Balance 320 ml 270 ml -330 ml INTERDISCIPLINARY TEAM CONFERENCE BOWEL- Cont BLADDER-Cont SKIN- intact OT- DRESSING-sba BATHING-sba TOILETING-sba PT- BED MOBILITY-sba TRANSFERS-sba AMBULATION-sba 150 feet A/P- Interdisciplinary team conference held today. Please see interdisciplinary sheet. Working toward d.c. on 01/13 with post discharge follow up of physical therapy, occupational therapy. Results/Medications Result Diagram: 01/06/17 0600 Medications Current Medications Docusate Sodium (Colace) 100 mg BID PO Last administered on 01/09/17 10:24; Admin Dose 100 MG; Start 01/01/17 at 21:00 Senna (Senokot) 1 tab QHS PO Last administered on 01/08/17 20:52; Admin Dose 1 TAB; Start 01/01/17 at 21:00 Magnesium Hydroxide (Milk Of Mag) 30 ml BID PRN PO CONSTIPATION; Start 01/01/17 at 13:00 Lactulose (Enulose) 20 gm DAILY PRN PO CONSTIPATION Last administered on 09:01; Admin Dose 20 GM; Start 01/01/17 at 13:00 Acetaminophen (Tylenol Tab) 650 mg Q6H PRN PO PAIN AND OR ELEVATED TEMP; Start 01/01/17 at 13:00 Bisacodyl (Dulcolax) 10 mg BID PRN PO CONSTIPATION; Start 01/01/17 at 13:00 Morphine Sulfate (morphine) 2 mg Q3H PRN IV PAIN; Start 01/01/17 at 13:00 Acetaminophen/ Hydrocodone Bitart ([place] (5/325)) 1 tab Q3H PRN PO PAIN Last administered on 01/05/17 10:01; Admin Dose 1 TAB; Start 01/01/17 at 13:00 Enoxaparin Sodium (Lovenox) 40 mg DAILY SC Last administered on 01/09/17 10:28 ; Admin Dose 40 MG; Start 01/02/17 at 09:00 Folic Acid (Folic Acid) 1 mg DAILY PO Last administered on 01/09/17 10:24; Admin Dose 1 MG; Start 01/03/17 at 11:00 Ferrous Sulfate (Ferrous Sulfate (Ec)) 325 mg TID PO Last administered on 10:24; Admin Dose 325 MG; Start 01/03/17 at 13:00 Gabapentin (Neurontin) 100 mg BID PO Last administered on 01/09/17 10:24; Admin Dose 100 MG; Start 01/04/17 at 11:30 Pantoprazole (Protonix Tab) 40 mg DAILY@06 PO Last administered on 01/09/17 06 :52; Admin Dose 40 MG; Start 01/06/17 at 06:00 Ciprofloxacin (Cipro) 500 mg BID@,18 PO Last administered on 01/09/17 06:52 ; Admin Dose 500 MG; Start 01/06/17 at 18:00 NICK SIDDIQI MD Jan 09, 2017 11:58 NICK SIDDIQI MD Jan 09, 2017 11:58
--- NOTE | 2017-01-09 17:55 | PN ---
Date/Time of Note Date/Time of Note DATE: 01/09/17 TIME: 17:54 Assessment/Plan VTE Prophylaxis VTE Prophylaxis Intervention: other Lines/Catheters IV Catheter Type (from Nrs): Saline Lock Urinary Cath still in place: No Assessment/Plan Chief Complaint/Hosp Course s/p hip fracture repair anemia UTI better plan pt/ot STABLE Problems: Subjective 24 Hr Interval Summary Respiratory: no complaints Cardiovascular: no complaints Exam/Review of Systems Vital Signs Vitals Vital Signs Date Time Temp Pulse Resp B/P Pulse Ox O2 Delivery O2 Flow Rate FiO2 01/09/17 07:30 98.3 70 18 128/55 99 01/06/17 08:28 Room Air Intake and Output 01/08/17 01/08/17 01/09/17 15:00 23:00 07:00 Intake Total 720 ml 470 ml 120 ml Output Total 400 ml 200 ml 450 ml Balance 320 ml 270 ml -330 ml Exam Neck: supple Respiratory: clear to auscultation Cardiovascular: regular rate and rhythm Gastrointestinal: soft Musculoskeletal: nl extremities to inspection Results Result Diagram: 01/06/17 0600 Medications Medications Current Medications Docusate Sodium (Colace) 100 mg BID PO Last administered on 01/09/17 10:24; Admin Dose 100 MG; Start 01/01/17 at 21:00 Senna (Senokot) 1 tab QHS PO Last administered on 01/08/17 20:52; Admin Dose 1 TAB; Start 01/01/17 at 21:00 Magnesium Hydroxide (Milk Of Mag) 30 ml BID PRN PO CONSTIPATION; Start 01/01/17 at 13:00 Lactulose (Enulose) 20 gm DAILY PRN PO CONSTIPATION Last administered on 09:01; Admin Dose 20 GM; Start 01/01/17 at 13:00 Acetaminophen (Tylenol Tab) 650 mg Q6H PRN PO PAIN AND OR ELEVATED TEMP; Start 01/01/17 at 13:00 Bisacodyl (Dulcolax) 10 mg BID PRN PO CONSTIPATION; Start 01/01/17 at 13:00 Morphine Sulfate (morphine) 2 mg Q3H PRN IV PAIN; Start 01/01/17 at 13:00 Acetaminophen/ Hydrocodone Bitart ([place] (5/325)) 1 tab Q3H PRN PO PAIN Last administered on 01/05/17 10:01; Admin Dose 1 TAB; Start 01/01/17 at 13:00 Enoxaparin Sodium (Lovenox) 40 mg DAILY SC Last administered on 01/09/17 10:28 ; Admin Dose 40 MG; Start 01/02/17 at 09:00 Folic Acid (Folic Acid) 1 mg DAILY PO Last administered on 01/09/17 10:24; Admin Dose 1 MG; Start 01/03/17 at 11:00 Ferrous Sulfate (Ferrous Sulfate (Ec)) 325 mg TID PO Last administered on 13:00; Admin Dose 325 MG; Start 01/03/17 at 13:00 Gabapentin (Neurontin) 100 mg BID PO Last administered on 01/09/17 10:24; Admin Dose 100 MG; Start 01/04/17 at 11:30 Pantoprazole (Protonix Tab) 40 mg DAILY@06 PO Last administered on 01/09/17 06 :52; Admin Dose 40 MG; Start 01/06/17 at 06:00 Ciprofloxacin (Cipro) 500 mg BID@,18 PO Last administered on 01/09/17 06:52 ; Admin Dose 500 MG; Start 01/06/17 at 18:00 EFRAÍN PEREIRA MD Jan 09, 2017 17:55
[2017-01-09 20:00] VITALS: BP 109/53; RESP 18
[2017-01-09] MEDS: SENNA TAB PO SCH (20:45)
[2017-01-10] MEDS: PANTOPRAZOLE (EC) 40 MG TAB PO SCH (06:50)
[2017-01-10] MEDS: CIPROFLOXACIN 500 MG TAB PO SCH ×2 (06:50→18:28)
[2017-01-10 08:03] VITALS: BP 124/53; PULSE 66; RESP 16
[2017-01-10] MEDS: DOCUSATE SODIUM 100 MG CAP PO SCH ×2 (09:21→20:28)
[2017-01-10] MEDS: GABAPENTIN 100 MG CAP PO SCH ×2 (09:22→20:28)
[2017-01-10] MEDS: FERROUS SULFATE (EC) 325 MG TAB PO SCH ×3 (09:22→20:29)
[2017-01-10] MEDS: FOLIC ACID 1 MG TAB PO SCH (09:22)
[2017-01-10] MEDS: ENOXAPARIN 40 MG/0.4 ML SYG SC SCH (09:24)
--- NOTE | 2017-01-10 11:06 | CONS ---
Date/Time of Note Date/Time of Note DATE: 01/10/17 TIME: 11:06 Consult Date/Type/Reason Admit Date/Time Jan 01, 2017 at 12:13 Subjective doing well Objective pulm-cta sba ambulation Vital Signs Date Time Temp Pulse Resp B/P Pulse Ox O2 Delivery O2 Flow Rate FiO2 01/10/17 08:03 98.0 66 16 124/53 97 Room Air Intake and Output 01/09/17 01/09/17 01/10/17 14:59 22:59 06:59 Intake Total 1550 ml 220 ml Output Total 1751 ml Balance 1550 ml -1531 ml Results/Medications Result Diagram: 01/06/17 0600 Medications Current Medications Docusate Sodium (Colace) 100 mg BID PO Last administered on 01/10/17 09:21; Admin Dose 100 MG; Start 01/01/17 at 21:00 Senna (Senokot) 1 tab QHS PO Last administered on 01/09/17 20:45; Admin Dose 1 TAB; Start 01/01/17 at 21:00 Magnesium Hydroxide (Milk Of Mag) 30 ml BID PRN PO CONSTIPATION; Start 01/01/17 at 13:00 Lactulose (Enulose) 20 gm DAILY PRN PO CONSTIPATION Last administered on 09:01; Admin Dose 20 GM; Start 01/01/17 at 13:00 Acetaminophen (Tylenol Tab) 650 mg Q6H PRN PO PAIN AND OR ELEVATED TEMP; Start 01/01/17 at 13:00 Bisacodyl (Dulcolax) 10 mg BID PRN PO CONSTIPATION Last administered on 09:31; Admin Dose 10 MG; Start 01/01/17 at 13:00 Morphine Sulfate (morphine) 2 mg Q3H PRN IV PAIN; Start 01/01/17 at 13:00 Acetaminophen/ Hydrocodone Bitart ([place] (5/325)) 1 tab Q3H PRN PO PAIN Last administered on 01/05/17 10:01; Admin Dose 1 TAB; Start 01/01/17 at 13:00 Enoxaparin Sodium (Lovenox) 40 mg DAILY SC Last administered on 01/10/17 09:24 ; Admin Dose 40 MG; Start 01/02/17 at 09:00 Folic Acid (Folic Acid) 1 mg DAILY PO Last administered on 01/10/17 09:22; Admin Dose 1 MG; Start 01/03/17 at 11:00 Ferrous Sulfate (Ferrous Sulfate (Ec)) 325 mg TID PO Last administered on 09:22; Admin Dose 325 MG; Start 01/03/17 at 13:00 Gabapentin (Neurontin) 100 mg BID PO Last administered on 01/10/17 09:22; Admin Dose 100 MG; Start 01/04/17 at 11:30 Pantoprazole (Protonix Tab) 40 mg DAILY@06 PO Last administered on 01/10/17 06 :50; Admin Dose 40 MG; Start 01/06/17 at 06:00 Ciprofloxacin (Cipro) 500 mg BID@,18 PO Last administered on 01/10/17 06:50 ; Admin Dose 500 MG; Start 01/06/17 at 18:00 Assessment/Plan Additional Assessment/Plan Rehab- Right femoral neck fracture status post hemiarthroplasty. Excellent progress, working toward [place] 01/13 Acute pain syndrome-improving Dyslipidemia. NICK Ambrocio MD Jan 10, 2017 11:06
--- NOTE | 2017-01-10 12:37 | PN ---
Date/Time of Note Date/Time of Note DATE: 01/10/17 TIME: 12:36 Assessment/Plan VTE Prophylaxis VTE Prophylaxis Intervention: ambulation Lines/Catheters [facility] Saline Lock Urinary Cath still in place: No Assessment/Plan Chief Complaint/Hosp Course 1. S/p right hip arthroplasty 2. Dyslipidemia 3. Anemia 4. Right foot neuropathy Problems: Assessment/Plan 1. Continue rehabilitation Subjective 24 Hr Interval Summary Constitutional: improved Musculoskeletal: bone/joint pain (left hip pain 2/10), no complaints Exam/Review of Systems Vital Signs Vitals Vital Signs Date Time Temp Pulse Resp B/P Pulse Ox O2 Delivery O2 Flow Rate FiO2 01/10/17 08:03 98.0 66 16 124/53 97 Room Air Intake and Output 01/09/17 01/09/17 01/10/17 15:00 23:00 07:00 Intake Total 1550 ml 220 ml Output Total 1751 ml Balance 1550 ml -1531 ml Exam Constitutional: alert, oriented Eyes: nl conjunctiva ENMT: nl external ears & nose Neck: supple Respiratory: clear to auscultation Cardiovascular: regular rate and rhythm Musculoskeletal: other (right hip wound) Results Result Diagram: 01/06/17 0600 Medications Medications Current Medications Docusate Sodium (Colace) 100 mg BID PO Last administered on 01/10/17 09:21; Admin Dose 100 MG; Start 01/01/17 at 21:00 Senna (Senokot) 1 tab QHS PO Last administered on 01/09/17 20:45; Admin Dose 1 TAB; Start 01/01/17 at 21:00 Magnesium Hydroxide (Milk Of Mag) 30 ml BID PRN PO CONSTIPATION; Start 01/01/17 at 13:00 Lactulose (Enulose) 20 gm DAILY PRN PO CONSTIPATION Last administered on 09:01; Admin Dose 20 GM; Start 01/01/17 at 13:00 Acetaminophen (Tylenol Tab) 650 mg Q6H PRN PO PAIN AND OR ELEVATED TEMP; Start 01/01/17 at 13:00 Bisacodyl (Dulcolax) 10 mg BID PRN PO CONSTIPATION Last administered on 09:31; Admin Dose 10 MG; Start 01/01/17 at 13:00 Morphine Sulfate (morphine) 2 mg Q3H PRN IV PAIN; Start 01/01/17 at 13:00 Acetaminophen/ Hydrocodone Bitart ([place] (5/325)) 1 tab Q3H PRN PO PAIN Last administered on 01/05/17 10:01; Admin Dose 1 TAB; Start 01/01/17 at 13:00 Enoxaparin Sodium (Lovenox) 40 mg DAILY SC Last administered on 01/10/17 09:24 ; Admin Dose 40 MG; Start 01/02/17 at 09:00 Folic Acid (Folic Acid) 1 mg DAILY PO Last administered on 01/10/17 09:22; Admin Dose 1 MG; Start 01/03/17 at 11:00 Ferrous Sulfate (Ferrous Sulfate (Ec)) 325 mg TID PO Last administered on 09:22; Admin Dose 325 MG; Start 01/03/17 at 13:00 Gabapentin (Neurontin) 100 mg BID PO Last administered on 01/10/17 09:22; Admin Dose 100 MG; Start 01/04/17 at 11:30 Pantoprazole (Protonix Tab) 40 mg DAILY@06 PO Last administered on 01/10/17 06 :50; Admin Dose 40 MG; Start 01/06/17 at 06:00 Ciprofloxacin (Cipro) 500 mg BID@,18 PO Last administered on 01/10/17 06:50 ; Admin Dose 500 MG; Start 01/06/17 at 18:00 WANDER CARPENTER Jan 10, 2017 12:37
[2017-01-10] MEDS: SENNA TAB PO SCH (20:29)
[2017-01-10 22:10] VITALS: BP 117/60; RESP 18
[2017-01-11] MEDS: PANTOPRAZOLE (EC) 40 MG TAB PO SCH (06:41)
[2017-01-11] MEDS: CIPROFLOXACIN 500 MG TAB PO SCH ×2 (06:41→17:30)
[2017-01-11 06:55] LABS: ADD SCAN DIFF NO
[2017-01-11 07:01] LABS: BASOPHILS % 0.2 % (0.0-2.0); EOSINOPHILS # 0.1 10^3/ul (0.0-0.5); EOSINOPHILS % 2.6 % (0.0-7.0); HEMATOCRIT 28.8 % (37.0-47.0); HEMOGLOBIN 9.3 g/dl (12.0-16.0); LYMPHOCYTES # 1.2 10^3/ul (0.8-2.9); LYMPHOCYTES % 24.7 % (15.0-51.0); MEAN CORPUSCULAR HEMOGLOBIN 31.7 pg (29.0-33.0); MEAN CORPUSCULAR HGB CONC 32.3 g/dl (32.0-37.0); MEAN CORPUSCULAR VOLUME 98.3 fl (82.0-101.0); MEAN PLATELET VOLUME 9.8 fl (7.4-10.4); MONOCYTE # 0.6 10^3/ul (0.3-0.9); MONOCYTES % 11.7 % (0.0-11.0); NEUTROPHIL # 2.9 10^3/ul (1.6-7.5); NEUTROPHILS % 60.6 % (39.0-77.0); PLATELET COUNT 480 10^3/UL (140-415); RED BLOOD COUNT 2.93 10^6/ul (4.20-5.40); RED CELL DISTRIBUTION WIDTH 14.5 % (11.5-14.5); WHITE BLOOD COUNT 4.7 10^3/ul (4.8-10.8)
[2017-01-11 07:26] LABS: CALCIUM 9.4 mg/dl (8.4-10.2); CREATININE 0.85 mg/dl (0.44-1.00); POTASSIUM 4.4 mmol/L (3.5-5.1)
[2017-01-11 07:30] VITALS: BP 135/58; RESP 18
[2017-01-11 07:32] LABS: PREALBUMIN 18.8 mg/dl (17.6-36.0)
[2017-01-11] MEDS: GABAPENTIN 100 MG CAP PO SCH ×2 (08:33→20:54)
[2017-01-11] MEDS: FERROUS SULFATE (EC) 325 MG TAB PO SCH ×3 (08:33→20:54)
[2017-01-11] MEDS: FOLIC ACID 1 MG TAB PO SCH (08:34)
[2017-01-11] MEDS: DOCUSATE SODIUM 100 MG CAP PO SCH ×2 (08:34→20:54)
[2017-01-11] MEDS: ENOXAPARIN 40 MG/0.4 ML SYG SC SCH (08:35)
--- NOTE | 2017-01-11 11:42 | PN ---
Date/Time of Note Date/Time of Note DATE: 01/11/17 TIME: 11:41 Assessment/Plan VTE Prophylaxis VTE Prophylaxis Intervention: ambulation Lines/Catheters IV Catheter Type (from Nrs): Saline Lock Urinary Cath still in place: No Assessment/Plan Chief Complaint/Hosp Course 1. S/p right hip arthroplasty 2. Dyslipidemia 3. Anemia 4. Right foot neuropathy, better Problems: Assessment/Plan 1. Preparing for discharge walker, high chair , bath tub special chair Subjective 24 Hr Interval Summary Constitutional: no complaints Musculoskeletal: restricted range of motion (left hip, pain) Exam/Review of Systems Vital Signs Vitals Vital Signs Date Time Temp Pulse Resp B/P Pulse Ox O2 Delivery O2 Flow Rate FiO2 01/10/17 22:10 98.5 72 18 117/60 97 01/10/17 08:03 Room Air Intake and Output 01/10/17 01/10/17 01/11/17 15:00 23:00 07:00 Intake Total 720 ml Output Total 650 ml Balance 70 ml Exam Constitutional: alert, oriented Neck: supple Respiratory: clear to auscultation Cardiovascular: regular rate and rhythm Musculoskeletal: muscle weakness (left leg) Results Result Diagram: 01/11/17 0607 01/11/17 0607 Results 24 hrs Laboratory Tests Test 01/11/17 06:07 White Blood Count 4.7 L Red Blood Count 2.93 L Hemoglobin 9.3 L Hematocrit 28.8 L Mean Corpuscular Volume 98.3 Mean Corpuscular Hemoglobin 31.7 Mean Corpuscular Hemoglobin Concent 32.3 Red Cell Distribution Width 14.5 Platelet Count 480 #H Mean Platelet Volume 9.8 Neutrophils % 60.6 Lymphocytes % 24.7 Monocytes % 11.7 H Eosinophils % 2.6 Basophils % 0.2 Nucleated Red Blood Cells % 0.0 Neutrophils # 2.9 Lymphocytes # 1.2 Monocytes # 0.6 Eosinophils # 0.1 Basophils # 0.0 Nucleated Red Blood Cells # 0.0 Sodium Level 141 Potassium Level 4.4 Chloride Level 103 Carbon Dioxide Level 31 Anion Gap 11 Blood Urea Nitrogen 13 Creatinine 0.85 Glucose Level 99 Calcium Level 9.4 Prealbumin 18.8 Medications Medications Current Medications Docusate Sodium (Colace) 100 mg BID PO Last administered on 01/10/17t 20:28; Admin Dose 100 MG; Start 01/01/17 at 21:00 Senna (Senokot) 1 tab QHS PO Last administered on 01/10/17 20:29; Admin Dose 1 TAB; Start 01/01/17 at 21:00 Magnesium Hydroxide (Milk Of Mag) 30 ml BID PRN PO CONSTIPATION; Start 01/01/17 at 13:00 Lactulose (Enulose) 20 gm DAILY PRN PO CONSTIPATION Last administered on 09:01; Admin Dose 20 GM; Start 01/01/17 at 13:00 Acetaminophen (Tylenol Tab) 650 mg Q6H PRN PO PAIN AND OR ELEVATED TEMP; Start 01/01/17 at 13:00 Bisacodyl (Dulcolax) 10 mg BID PRN PO CONSTIPATION Last administered on 09:31; Admin Dose 10 MG; Start 01/01/17 at 13:00 Morphine Sulfate (morphine) 2 mg Q3H PRN IV PAIN; Start 01/01/17 at 13:00 Acetaminophen/ Hydrocodone Bitart ([place] (5/325)) 1 tab Q3H PRN PO PAIN Last administered on 01/05/17 10:01; Admin Dose 1 TAB; Start 01/01/17 at 13:00 Enoxaparin Sodium (Lovenox) 40 mg DAILY SC Last administered on 01/11/17 08:35 ; Admin Dose 40 MG; Start 01/02/17 at 09:00 Folic Acid (Folic Acid) 1 mg DAILY PO Last administered on 01/11/17 08:34; Admin Dose 1 MG; Start 01/03/17 at 11:00 Ferrous Sulfate (Ferrous Sulfate (Ec)) 325 mg TID PO Last administered on 08:33; Admin Dose 325 MG; Start 01/03/17 at 13:00 Gabapentin (Neurontin) 100 mg BID PO Last administered on 01/11/17 08:33; Admin Dose 100 MG; Start 01/04/17 at 11:30 Pantoprazole (Protonix Tab) 40 mg DAILY@06 PO Last administered on 01/11/17 06 :41; Admin Dose 40 MG; Start 01/06/17 at 06:00 Ciprofloxacin (Cipro) 500 mg BID@,18 PO Last administered on 01/11/17 06:41 ; Admin Dose 500 MG; Start 01/06/17 at 18:00 WANDER CARPENTER 17, 2017 11:42
--- NOTE | 2017-01-11 12:08 | PN ---
Date/Time of Note Date/Time of Note DATE: 01/11/17 TIME: 12:05 Assessment/Plan Lines/Catheters IV Catheter Type (from Nrs): Saline Lock Urinary Cath still in place: No Assessment/Plan Assessment/Plan 1. Right femoral neck fracture status post hemiarthroplasty, with impaired mobility/gait/ADLs. Continue PT/OT. Gait improving, now SPV, 150ft with FWW. Excellent progress, working toward [place] 01/13 Acute pain syndrome-improving Dyslipidemia. Anemia Subjective 24 Hr Interval Summary Free Text/Dictation Rehab progress note Subjective: No acute complaints at present. Denies current right hip pain. ROS: Denies headache, no dizziness, no chest pain, no shortness of breath, no abdominal pain, no nausea or vomiting. Exam/Review of Systems Vital Signs Vitals Vital Signs Date Time Temp Pulse Resp B/P Pulse Ox O2 Delivery O2 Flow Rate FiO2 01/11/17 07:30 98.2 76 18 135/58 97 01/10/17 08:03 Room Air Intake and Output 01/10/17 01/10/17 01/11/17 15:00 23:00 07:00 Intake Total 720 ml Output Total 650 ml Balance 70 ml Exam General: Awake, alert, no acute distress CV: Regular rate, s1s2 Lungs: Clear to auscultation, no wheezing Abdomen soft, nontender Extremities without cyanosis, calves nontender Neuro: Active R DF/PF. No new sensory changes. Follows simple commands. Results Result Diagram: 01/11/17 0607 01/11/17 0607 Results 24 hrs Laboratory Tests Test 01/11/17 06:07 White Blood Count 4.7 L Red Blood Count 2.93 L Hemoglobin 9.3 L Hematocrit 28.8 L Mean Corpuscular Volume 98.3 Mean Corpuscular Hemoglobin 31.7 Mean Corpuscular Hemoglobin Concent 32.3 Red Cell Distribution Width 14.5 Platelet Count 480 #H Mean Platelet Volume 9.8 Neutrophils % 60.6 Lymphocytes % 24.7 Monocytes % 11.7 H Eosinophils % 2.6 Basophils % 0.2 Nucleated Red Blood Cells % 0.0 Neutrophils # 2.9 Lymphocytes # 1.2 Monocytes # 0.6 Eosinophils # 0.1 Basophils # 0.0 Nucleated Red Blood Cells # 0.0 Sodium Level 141 Potassium Level 4.4 Chloride Level 103 Carbon Dioxide Level 31 Anion Gap 11 Blood Urea Nitrogen 13 Creatinine 0.85 Glucose Level 99 Calcium Level 9.4 Prealbumin 18.8 Medications Medications Current Medications Docusate Sodium (Colace) 100 mg BID PO Last administered on 01/10/17 20:28; Admin Dose 100 MG; Start 01/01/17 at 21:00 Senna (Senokot) 1 tab QHS PO Last administered on 01/10/17 20:29; Admin Dose 1 TAB; Start 01/01/17 at 21:00 Magnesium Hydroxide (Milk Of Mag) 30 ml BID PRN PO CONSTIPATION; Start 01/01/17 at 13:00 Lactulose (Enulose) 20 gm DAILY PRN PO CONSTIPATION Last administered on 09:01; Admin Dose 20 GM; Start 01/01/17 at 13:00 Acetaminophen (Tylenol Tab) 650 mg Q6H PRN PO PAIN AND OR ELEVATED TEMP; Start 01/01/17 at 13:00 Bisacodyl (Dulcolax) 10 mg BID PRN PO CONSTIPATION Last administered on 09:31; Admin Dose 10 MG; Start 01/01/17 at 13:00 Morphine Sulfate (morphine) 2 mg Q3H PRN IV PAIN; Start 01/01/17 at 13:00 Acetaminophen/ Hydrocodone Bitart ([place] (5/325)) 1 tab Q3H PRN PO PAIN Last administered on 01/05/17 10:01; Admin Dose 1 TAB; Start 01/01/17 at 13:00 Enoxaparin Sodium (Lovenox) 40 mg DAILY SC Last administered on 01/11/17 08:35 ; Admin Dose 40 MG; Start 01/02/17 at 09:00 Folic Acid (Folic Acid) 1 mg DAILY PO Last administered on 01/11/17 08:34; Admin Dose 1 MG; Start 01/03/17 at 11:00 Ferrous Sulfate (Ferrous Sulfate (Ec)) 325 mg TID PO Last administered on 08:33; Admin Dose 325 MG; Start 01/03/17 at 13:00 Gabapentin (Neurontin) 100 mg BID PO Last administered on 01/11/17 08:33; Admin Dose 100 MG; Start 01/04/17 at 11:30 Pantoprazole (Protonix Tab) 40 mg DAILY@06 PO Last administered on 01/11/17 06 :41; Admin Dose 40 MG; Start 01/06/17 at 06:00 Ciprofloxacin (Cipro) 500 mg BID@18 PO Last administered on 01/11/17 06:41 ; Admin Dose 500 MG; Start 01/06/17 at 18:00 ANNY GASTON Jan 11, 2017 12:08
[2017-01-11 19:46] VITALS: BP 115/55; RESP 20
[2017-01-11] MEDS: SENNA TAB PO SCH (20:54)
[2017-01-12] MEDS: PANTOPRAZOLE (EC) 40 MG TAB PO SCH (06:45)
[2017-01-12] MEDS: CIPROFLOXACIN 500 MG TAB PO SCH ×2 (06:45→18:00)
[2017-01-12] MEDS: GABAPENTIN 100 MG CAP PO SCH ×2 (08:56→20:48)
[2017-01-12] MEDS: FERROUS SULFATE (EC) 325 MG TAB PO SCH ×3 (08:56→20:48)
[2017-01-12] MEDS: FOLIC ACID 1 MG TAB PO SCH (08:56)
[2017-01-12] MEDS: DOCUSATE SODIUM 100 MG CAP PO SCH ×2 (08:56→20:48)
[2017-01-12] MEDS: ENOXAPARIN 40 MG/0.4 ML SYG SC SCH (08:57)
--- NOTE | 2017-01-12 09:53 | PN ---
Date/Time of Note Date/Time of Note DATE: 01/12/17 TIME: 09:52 Assessment/Plan VTE Prophylaxis VTE Prophylaxis Intervention: ambulation Lines/Catheters IV [facility] Type [facility]from [facility] Saline Lock Urinary Cath still in place: No Assessment/Plan Chief Complaint/Hosp Course 1. S/p right hip arthroplasty 2. Dyslipidemia 3. Anemia 4. Right foot neuropathy, better Problems: Assessment/Plan 1. discharge tomorrow 2. Stop Cipro Subjective 24 Hr Interval Summary Constitutional: improved, no complaints Exam/Review of Systems Vital Signs Vitals Vital Signs Date Time Temp Pulse Resp B/P Pulse Ox O2 Delivery O2 Flow Rate FiO2 01/11/17 19:46 98.8 72 20 115/55 97 01/10/17 08:03 Room Air Intake and Output 01/11/17 01/11/17 01/12/17 15:00 23:00 07:00 Intake Total 1800 ml 200 ml Output Total 1100 ml 300 ml 220 ml Balance -1100 ml 1500 ml -20 ml Exam Constitutional: alert, oriented Respiratory: clear to auscultation Cardiovascular: regular rate and rhythm Gastrointestinal: soft Musculoskeletal: range of motion (left hip decreased) Results Result Diagram: 01/11/17 0607 01/11/17 0607 Medications Medications Current Medications Docusate Sodium (Colace) 100 mg BID PO Last administered on 01/12/17 08:56; Admin Dose 100 MG; Start 01/01/17 at 21:00 Senna (Senokot) 1 tab QHS PO Last administered on 01/11/17 20:54; Admin Dose 1 TAB; Start 01/01/17 at 21:00 Magnesium Hydroxide (Milk Of Mag) 30 ml BID PRN PO CONSTIPATION; Start 01/01/17 at 13:00 Lactulose (Enulose) 20 gm DAILY PRN PO CONSTIPATION Last administered on 09:01; Admin Dose 20 GM; Start 01/01/17 at 13:00 Acetaminophen (Tylenol Tab) 650 mg Q6H PRN PO PAIN AND OR ELEVATED TEMP; Start 01/01/17 at 13:00 Bisacodyl (Dulcolax) 10 mg BID PRN PO CONSTIPATION Last administered on 09:31; Admin Dose 10 MG; Start 01/01/17 at 13:00 Morphine Sulfate (morphine) 2 mg Q3H PRN IV PAIN; Start 01/01/17 at 13:00 Acetaminophen/ Hydrocodone Bitart ([place] (5/325)) 1 tab Q3H PRN PO PAIN Last administered on 01/05/17 10:01; Admin Dose 1 TAB; Start 01/01/17 at 13:00 Enoxaparin Sodium (Lovenox) 40 mg DAILY SC Last administered on 01/12/17 08:57 ; Admin Dose 40 MG; Start 01/02/17 at 09:00 Folic Acid (Folic Acid) 1 mg DAILY PO Last administered on 01/12/17 08:56; Admin Dose 1 MG; Start 01/03/17 at 11:00 Ferrous Sulfate (Ferrous Sulfate (Ec)) 325 mg TID PO Last administered on 08:56; Admin Dose 325 MG; Start 01/03/17 at 13:00 Gabapentin (Neurontin) 100 mg BID PO Last administered on 01/12/17 08:56; Admin Dose 100 MG; Start 01/04/17 at 11:30 Pantoprazole (Protonix Tab) 40 mg DAILY@06 PO Last administered on 01/12/17 06 :45; Admin Dose 40 MG; Start 01/06/17 at 06:00 Ciprofloxacin (Cipro) 500 mg BID@ PO Last administered on 01/12/17 06:45 ; Admin Dose 500 MG; Start 01/06/17 at 18:00 WANDER CARPENTER Jan 12, 2017 09:53
--- NOTE | 2017-01-12 11:02 | PN ---
Date/Time of Note Date/Time of Note DATE: 01/12/17 TIME: 10:59 Assessment/Plan Lines/Catheters IV Catheter Type (from Nrsg): Saline Lock Urinary Cath still in place: No Assessment/Plan Assessment/Plan 1. Right femoral neck fracture status post hemiarthroplasty, with impaired mobility/gait/ADLs. Continue PT/OT. 2. Acute pain syndrome secondary to above. Pain controlled. Continue pain regimen. 3. Dyslipidemia. Per internal medicine. 4. Anemia. Continue iron supplementation. Continue to monitor hemoglobin/ hematocrit. Subjective 24 Hr Interval Summary Free Text/Dictation Rehab progress note Subjective: No acute complaints. Denies any pain in right hip. ROS: Denies headache, no dizziness, no chest pain, no shortness of breath, no abdominal pain, no nausea or vomiting. Exam/Review of Systems Vital Signs Vitals Vital Signs Date Time Temp Pulse Resp B/P Pulse Ox O2 Delivery O2 Flow Rate FiO2 01/11/17 19:46 98.8 72 20 115/55 97 01/10/17 08:03 Room Air Intake and Output 01/11/17 01/11/17 01/12/17 15:00 23:00 07:00 Intake Total 1800 ml 200 ml Output Total 1100 ml 300 ml 220 ml Balance -1100 ml 1500 ml -20 ml Exam General: Awake, alert, no acute distress CV: Regular rate, s1s2 audible Lungs:Symmetrical air entry bilaterally, no wheezing Abdomen soft, nontender Extremities without cyanosis, right hip surgical dressing clean and dry Neuro: No new focal changes. Follows simple commands. Results Result Diagram: 01/11/1760601/11/17 06 Medications Medications Current Medications Docusate Sodium (Colace) 100 mg BID PO Last administered on 01/12/17 08:56; Admin Dose 100 MG; Start 01/01/17 at 21:00 Senna (Senokot) 1 tab QHS PO Last administered on 01/11/17 20:54; Admin Dose 1 TAB; Start 01/01/17 at 21:00 Magnesium Hydroxide (Milk Of Mag) 30 ml BID PRN PO CONSTIPATION; Start 01/01/17 at 13:00 Lactulose (Enulose) 20 gm DAILY PRN PO CONSTIPATION Last administered on 09:01; Admin Dose 20 GM; Start 01/01/17 at 13:00 Acetaminophen (Tylenol Tab) 650 mg Q6H PRN PO PAIN AND OR ELEVATED TEMP; Start 01/01/17 at 13:00 Bisacodyl (Dulcolax) 10 mg BID PRN PO CONSTIPATION Last administered on 09:31; Admin Dose 10 MG; Start 01/01/17 at 13:00 Acetaminophen/ Hydrocodone Bitart ([place] (5/325)) 1 tab Q3H PRN PO PAIN Last administered on 01/05/17 10:01; Admin Dose 1 TAB; Start 01/01/17 at 13:00 Enoxaparin Sodium (Lovenox) 40 mg DAILY SC Last administered on 01/12/17 08:57 ; Admin Dose 40 MG; Start 01/02/17 at 09:00 Folic Acid (Folic Acid) 1 mg DAILY PO Last administered on 01/12/17 08:56; Admin Dose 1 MG; Start 01/03/17 at 11:00 Ferrous Sulfate (Ferrous Sulfate (Ec)) 325 mg TID PO Last administered on 08:56; Admin Dose 325 MG; Start 01/03/17 at 13:00 Gabapentin (Neurontin) 100 mg BID PO Last administered on 01/12/17 08:56; Admin Dose 100 MG; Start 01/04/17 at 11:30 Pantoprazole (Protonix Tab) 40 mg DAILY@06 PO Last administered on 01/12/17 06 :45; Admin Dose 40 MG; Start 01/06/17 at 06:00 Ciprofloxacin (Cipro) 500 mg BID@ PO Last administered on 01/12/17 06:45 ; Admin Dose 500 MG; Start 01/06/17 at 18:00; Stop 01/13/17 at 09:53 ANNY GASTON Jan 12, 2017 11:02
[2017-01-12] MEDS: HYDROCODONE/APAP (5/325) TAB PO PRN (17:59)
[2017-01-12 20:11] VITALS: BP 105/54; RESP 16
[2017-01-12] MEDS: SENNA TAB PO SCH (20:49)
[2017-01-13] MEDS: PANTOPRAZOLE (EC) 40 MG TAB PO SCH (05:25)
[2017-01-13] MEDS: CIPROFLOXACIN 500 MG TAB PO SCH (05:25)
[2017-01-13 07:30] VITALS: BP 120/58; RESP 18
[2017-01-13] MEDS: FERROUS SULFATE (EC) 325 MG TAB PO SCH (09:03)
[2017-01-13] MEDS: FOLIC ACID 1 MG TAB PO SCH (09:03)
[2017-01-13] MEDS: DOCUSATE SODIUM 100 MG CAP PO SCH (09:03)
[2017-01-13] MEDS: GABAPENTIN 100 MG CAP PO SCH (09:03)
[2017-01-13] MEDS: ENOXAPARIN 40 MG/0.4 ML SYG SC SCH (09:06)
--- NOTE | 2017-01-13 09:07 | PN ---
Date/Time of Note Date/Time of Note DATE: 01/13/17 TIME: 09:04 Assessment/Plan Lines/Catheters IV Catheter Type (from Nrsg): Saline Lock Urinary Cath still in place: No Assessment/Plan Assessment/Plan 1. Right femoral neck fracture status post hemiarthroplasty, with impaired mobility/gait/ADLs. Improved with PT/OT, see discharge summary for functional levels on discharge. 2. Acute pain syndrome secondary to above. Pain controlled. Patient does not wish to continue prn norco on discharge, only prn tylenol. Continue gabapentin. 3. Dyslipidemia. Per internal medicine. 4. Anemia. On iron supplementation. 5. Discharge today to home with with home health. Subjective 24 Hr Interval Summary Free Text/Dictation Rehab progress note Subjective: Denies any new complaints. Has minimal overall pain in right hip. ROS: Denies headache, no dizziness, no chest pain, no shortness of breath, no abdominal pain, no nausea or vomiting. Exam/Review of Systems Vital Signs Vitals Vital Signs Date Time Temp Pulse Resp B/P Pulse Ox O2 Delivery O2 Flow Rate FiO2 01/12/17 20:11 98.6 79 16 105/54 96 01/10/17 08:03 Room Air Intake and Output 01/12/17 01/12/17 01/13/17 15:00 23:00 07:00 Intake Total 320 ml 720 ml Output Total 400 ml 450 ml Balance -80 ml 270 ml Exam General: Awake, alert, no acute distress CV: Regular rate, s1s2 Lungs: Respirations nonlabored, no wheezing Abdomen soft, nontender, +bowel sounds Extremities without new swelling. Right hip surgical site with steristrips in place, clean and dry Neuro: No new focal changes. Follows simple commands. Results Result Diagram: 01/11/1707 01/11/17 0607 Medications Medications Current Medications Docusate Sodium (Colace) 100 mg BID PO Last administered on 01/12/17 20:48; Admin Dose 100 MG; Start 01/01/17 at 21:00 Senna (Senokot) 1 tab QHS PO Last administered on 01/12/17 20:49; Admin Dose 1 TAB; Start 01/01/17 at 21:00 Magnesium Hydroxide (Milk Of Mag) 30 ml BID PRN PO CONSTIPATION; Start 01/01/17 at 13:00 Lactulose (Enulose) 20 gm DAILY PRN PO CONSTIPATION Last administered on 09:01; Admin Dose 20 GM; Start 01/01/17 at 13:00 Acetaminophen (Tylenol Tab) 650 mg Q6H PRN PO PAIN AND OR ELEVATED TEMP; Start 01/01/17 at 13:00 Bisacodyl (Dulcolax) 10 mg BID PRN PO CONSTIPATION Last administered on 09:31; Admin Dose 10 MG; Start 01/01/17 at 13:00 Acetaminophen/ Hydrocodone Bitart ([place] (5/325)) 1 tab Q3H PRN PO PAIN Last administered on 01/12/17 17:59; Admin Dose 1 TAB; Start 01/01/17 at 13:00 Enoxaparin Sodium (Lovenox) 40 mg DAILY SC Last administered on 01/12/17 08:57 ; Admin Dose 40 MG; Start 01/02/17 at 09:00 Folic Acid (Folic Acid) 1 mg DAILY PO Last administered on 01/12/17 08:56; Admin Dose 1 MG; Start 01/03/17 at 11:00 Ferrous Sulfate (Ferrous Sulfate (Ec)) 325 mg TID PO Last administered on 20:48; Admin Dose 325 MG; Start 01/03/17 at 13:00 Gabapentin (Neurontin) 100 mg BID PO Last administered on 01/12/17 20:48; Admin Dose 100 MG; Start 01/04/17 at 11:30 Pantoprazole (Protonix Tab) 40 mg DAILY@06 PO Last administered on 01/13/17 05 :25; Admin Dose 40 MG; Start 01/06/17 at 06:00 Ciprofloxacin (Cipro) 500 mg BID@ PO Last administered on 01/13/17 05:25 ; Admin Dose 500 MG; Start 01/06/17 at 18:00; Stop 01/13/17 at 09:53 ANNY GASTON Jan 13, 2017 09:07
--- NOTE | 2017-01-13 21:31 | DS ---
Date/Time of Note Date/Time of Note DATE: 01/13/17 TIME: 21:27 Discharge Summary Admission/Discharge Info Admit Date/Time Jan 01, 2017 at 12:13 Discharge Date/Time Jan 13, 2017 at 12:30 Final Diagnosis 1. s/p hemiarthroplasty right hip and developed postsurgical neuropathy right lower extremity. 2. Anemia. 3. dyslipidemia Patient Condition: Good Consults DR Jason, rehabilitation Procedures none Hx of Present Illness pt felt at home two weeks ago. She was seen in ER and admitted to [facility] with right hip fracture. Dr Rosen performed hemiarthroplasty and pt was transfered to Acute rehab for physical therapy Hospital Course 1. S/p right hip arthroplasty 2. Dyslipidemia 3. Anemia 4. Right foot neuropathy, better Follow-up Plan home health PT Primary Care Provider Rachana Burleson MD Time spent on discharge: < 30 minutes WANDER CARPENTER Jan 13, 2017 21:31
== END 2017-01-13 12:30 | disposition home health service (06) | DRG 560 ==
LOC: VRC 01-01 12:13
PROVIDERS: ADMIT Physical Medicine & Rehabilitation; ATTEND Internal Medicine Nephrology
PROC: F07Z5ZZ Bed Mobility Treatment (ICD-10-PCS; principal; 2017-01-01)
PROC: F08Z2ZZ Grooming/Personal Hygiene Treatment (ICD-10-PCS; 2017-01-01)
DX: S72.001D Fracture of unspecified part of neck of right femur, subsequent encounter for closed fracture with routine healing (principal); N39.0 Urinary tract infection, site not specified; G62.9 Polyneuropathy, unspecified; E78.5 Hyperlipidemia, unspecified; D64.9 Anemia, unspecified; Z96.641 Presence of right artificial hip joint; R52 Pain, unspecified
CPT/HCPCS: 80048; 80053; 81001; 82306; 84134; 85025; 87081; 87086; 97110; 97112; 97116; 97150; 97163; 97167; 97530; 97535; C9113; J1650; J7030